=== PATIENT | female | born 1955 | race Caucasian/White ===

== ENCOUNTER 2020-09-20 09:33 | Outpatient (CLI) | payer MEDICARE, SELFPAY ==
--- NOTE | ~2020-09-20 | NM_ITS ---
EXAMINATION: NM lonnie stress w perfusion DATE: 09/20/2020 12:33 INDICATION: Dyspnea on exertion. TECHNIQUE: Rest images were obtained following intravenous administration of 9.9 mCi Tc99m tetrofosmi n (Myoview). The patient was infused intravenously with Lexiscan (regadenoson). Then, 31.1 mCi Tc99m tetrofosmin (Myoview) was administered intravenously, and stress images were obtained. Data was recon structed into short axis and horizontal and vertical long axis SPECT images. Gated SPECT images were also obtained. COMPARISON: None. FINDINGS: There is no definite reversible or fixed perfusion abnormality to suggest ischemia or infar ction. There is no segmental wall motion abnormality. Left ventricular ejection fraction measures > 70%. IMPRESSION: 1. No definite ischemia or infarct. 2. Normal left ventricular ejection fraction measuring >70%. Reviewed, dictated and finalized at location A.
--- NOTE | 2020-09-20 09:44 | EST_ITS ---
Patient Info Name: Marlys Clark Age: 65 years : 1955 Gender: Female Exam Date: 09/20/2020 10:54 AM Exam Location: [facility] Stress Patient Status: Outpatient Admit Date: 09/20/2020 Staff Ordering Physician: Darren Brown MD Attending Provider: Darren Brown MD Exercise Technologist: Sujata Vieira RDCS Exercise Physician: Mark Anthony Scott DO Exam Type: CA stress lonnie w NM Study Info Indications I10 - Essential (primary) hypertension R06.00 - Dyspnea, unspecified A regadenoson stress test was performed. Summary 1. 1. Negative lexiscan stress test for ischemic ST changes by ECG criteria. 2. 2. Baseline hypertension. 3. 3. Nuclear scan to follow and will be reported separately. Please correlate with it. 4. 4. Patient informed of the above results. Protocol: Lexiscan Stress ECG Details Stage: REST Duration (min): 3 min : 34 sec HR (bpm): 55 SBP (mmHg): 180 DBP (mmHg): 95 Stage: REST Duration (min): 13 min : 21 sec HR (bpm): 56 SBP (mmHg): 180 DBP (mmHg): 95 Stage: STAGE 1 Duration (min): 0 min : 59 sec HR (bpm): 66 SBP (mmHg): 171 DBP (mmHg): 58 Stage: RECOVERY Duration (min): 1 min : 0 sec HR (bpm): 68 SBP (mmHg): 171 DBP (mmHg): 58 Stage: RECOVERY Duration (min): 2 min : 0 sec HR (bpm): 66 SBP (mmHg): 158 DBP (mmHg): 60 Stage: RECOVERY Duration (min): 3 min : 0 sec HR (bpm): 67 SBP (mmHg): 148 DBP (mmHg): 62 Stage: RECOVERY Duration (min): 3 min : 11 sec HR (bpm): 72 SBP (mmHg): 148 DBP (mmHg): 62 Rest HR: 56 bpm Peak HR: 72 bpm Rest Sys BP: 180 mmHg Peak Sys BP: 171 mmHg Max Pred HR: 153 bpm % Max Pred HR: 47 % Target HR: 130 bpm Max RPP: 12,312 bpm*mmHg Termination Reason: Completed protocol Cardiac Symptoms: Shortness of breath Total Time: 1 min : 0 sec Rest Patterson BP: 95 mmHg Peak Patterson BP: 58 mmHg Total Dose: 0.4 mg Resting ECG Sinus rhythm, cannot r/o septal infarct, age indeterminate. Stress ECG No ST changes. Arrhythmias None. Report Signatures
== END 2020-09-20 09:34 | disposition home or self-care (01) ==
LOC: ANHCARD 09:35
PROVIDERS: PCP Internal Medicine; Visit Provider Internal Medicine
DX: E55.9 Vitamin D deficiency, unspecified (principal); R06.00 Dyspnea, unspecified; I10 Essential (primary) hypertension; Z86.73 Personal history of transient ischemic attack (TIA), and cerebral infarction without residual deficits
CPT/HCPCS: 78452; 93017; A9502; J2785

== ENCOUNTER 2023-04-15 16:49 | Emergency (ER) | payer MEDICARE, SELFPAY ==
[2023-04-15 16:58] VITALS: BP 112/62; PULSE 65; RESP 18; TEMP 35.8; O2SAT 99
--- NOTE | 2023-04-15 16:58 | ED.URI ---
HPI - URI/Sore Throat General Chief Complaint: Upper Respiratory Infection Stated Complaint: Cough,Congestion,Rt Ear Irritation,Body Aches Time Seen by Provider: 04/15/23 16:52 Source: patient Mode of arrival: ambulatory Limitations: no limitations History of Present Illness HPI Narrative: Marlys is a 68-year-old female patient presenting to the clinic today with complaints of cough, sore throat, congestion, right ear pain, and body aches x2 days. She reports her symptoms started Wednesday night. She denies any known fever but has had some chills. No known exposure to anyone with COVID, flu, or strep. She denies any shortness of breath but does have some chest discomfort with cough. Cough is nonproductive. MD elicited complaint: cough, sore throat, nasal congestion and other (Chills, body aches) Related Data Home Medications Medication Instructions Recorded Confirmed frovatriptan 2.5 mg tablet 2.5 mg PO ONCE 12/04/19 04/15/23 aspirin 325 mg tablet 325 mg PO DAILY 01/04/20 04/15/23 Allergies Allergy/AdvReac Type Severity Reaction Status Date / Time valsartan AdvReac Intermediate shortness Verified 04/15/23 17:17 of breath perindopril AdvReac Mild Cough Verified 04/15/23 17:17 Review of Systems Review of Systems: Pertinent positives per HPI. Patient denies any fever, rash, headache, visual changes, dizziness, shortness of breath, chest pain, palpitations, nausea, vomiting, diarrhea, constipation, abdominal pain, or any urinary issues. [facility] Past Medical History Medical History Chronic low back pain Eustachian tube dysfunction History of CVA (cerebrovascular accident) Family History Family History Father Family history of lung cancer Family history of malignant neoplasm of brain Patient's father is Family history of malignant neoplasm Mother Cerebrovascular accident Family history of coronary artery disease Other Family history of cardiovascular disease Hypertension Social History Social History Smoking status: Never smoker Alcohol intake: never Comments At the time of my signature, I reviewed and agree with the nursing past medical, surgical, social, and family history. There is no relevant family history pertinent to the patient complaint. Exam Narrative: General: Well-developed, well nourished, in no apparent distress Head: Normocephalic, atraumatic Eyes: Pupils equally round and reactive to light bilaterally, EOM intact, sclera and conjunctive clear, no discharge, lids normal Ears: TMs intact and congested, ear canals clear, no drainage, grossly hearing normal. Nose: Nares patent, clear nasal discharge, no inflammation, no sinus tenderness. Mouth: Oral pharynx red without lesions or masses, good dentition, MMM. Postnasal drip Neck: Supple, trachea midline, no enlargement of anterior or posterior cervical nodes, no thyroid masses or goiter palpable. Cardio: Regular rate and rhythm, s1 and s2 normal, no murmur appreciated. Resp: Clear to auscultation bilaterally, no rhonchi, rales, wheezing or rubs Course Course Emergency Course: Portions of this record may have been created with voice recognition software. Level of Care: Express Care Visit Vital Signs Vital signs: Vital signs reviewed MDM - URI/Sore Throat MDM Narrative Medical decision making narrative: At the time of visit patient is resting comfortably on exam table. COVID, flu, and strep test were performed and were negative in the clinic today. Patient is denying any chest pain or shortness of breath today. States she is having a lot of coughing with lying flat. No history congestive heart failure and there is no peripheral edema. I suspect patient has viral syndrome/URI/pharyngitis. Supportive measures were discussed with
== END 2023-04-15 17:30 | disposition home or self-care (01) ==
PROVIDERS: Emergency Provider Nurse Practitioner Family; PCP Family Medicine
DX: J06.9 Acute upper respiratory infection, unspecified (principal); B34.9 Viral infection, unspecified; J02.9 Acute pharyngitis, unspecified; Z20.822 Contact with and (suspected) exposure to COVID-19; Z86.73 Personal history of transient ischemic attack (TIA), and cerebral infarction without residual deficits; Z79.82 Long term (current) use of aspirin
CPT/HCPCS: 87081; 87426; 87804; 87880; 99213; C9803; G0463

== ENCOUNTER 2024-08-15 15:21 | Outpatient (CLI) | payer OTHER, SELFPAY ==
[2024-08-15 15:55] LABS: Hematocrit 33.3 % (37.0-47.0); Hemoglobin 10.7 g/dL (12.0-15.0); Mean Corpuscular HGB Conc 32.1 g/dl (32-36); Mean Corpuscular Hemoglobin 28.6 pg (26-34); Mean Platelet Volume 10.1 fl (7.4-10.4); Platelet Count Result 177 k/mm3 (150-375); Red Blood Count 3.74 M/mm3 (4.2-5.4); Red Cell Distribution Width 13.7 % (11.5-14.5); White Blood Count 5.8 K/mm3 (4.5-10.0)
[2024-08-15 16:06] LABS: Alanine Aminotransferase 21 U/L (6-35); Alkaline Phosphatase 54 U/L (38-126); Anion Gap 10 mmol/L (4-12); Aspartate Amino Transferase 31 U/L (14-36); Bilirubin,Total 0.6 mg/dL (0.2-1.3); Blood Urea Nitrogen 20 mg/dL (7-17); Calcium 9.2 mg/dL (8.4-10.2); Carbon Dioxide 22 mmol/L (22-30); Chloride 111 mmol/L (98-107); Estimated Glomerular Filt Rate 57; Glucose 76 mg/dL (65-110); Potassium 3.7 mmol/L (3.4-5.0); Sodium 143 mmol/L (137-145)
--- OUTSIDE RECORDS SUMMARY | 2024-08-15 16:12 | XMS_ITS | Encounter Summary ---
Author Organization [facility] Address [address] [place] [id number] Care Team Providers Care Pediatric Anesthesiologist Name Role Phone Garth Lion MD Primary Care Provider [phone] Reason for Visit * Reason Onset Date Comments Surgical Clearance 08/09/2024 Encounter Details Date Type Department Care Team (Late st Contact Info) Description 08/09/2024 [facility]phone [facility] [address] [address] Addy Ahumada MD [facility]. [address] [id number] Surgical Clearance Social History Tobacco Use Types Packs/Day Years Used Date Smoking Tobacco: Never Smokeless Tobacco: Never Alcohol Use Standard Drinks/Week Comments Not Currently 0 (1 standard drink = 0.6 oz pur e alcohol) PHQ-2 Answer Date Recorded Patient Health Questionnaire-2 Score 0 12/11/2022 Comments No Sex and Gender Information Value Date Recorded Sex Assigned at Female 08/11/2024 10:23 AM LIBRARY MANAGER Legal Sex Female 5:31 PM CDT Gender Identity Female 09/02/2021 3:19 PM LIBRARY MANAGER Sexual Orientation Not on file documented as of this encounter Progress Notes * SAFIA Nichols - 08/14/2024 9:38 AM CST cleared ARY MANAGER * Xena Ortez RN - 08/11/2024 4:12 PM CST Patient denies chest pain/pressure and SOB. She is able to meet 4METS Xena COTTER ARY MANAGER * SAFIA Nichols - 08/09/2024 2:43 PM CST Please confirm no new chest pain, pressure, SOB and can meet 4 METS of activity. ARY MANAGER * SANDRA Bhatt - 08/09/2024 9:18 AM CST RECEIVED FAX REQUESTING CLEARANCE PRIOR TO UNDERGOING A PROCEDURE W/ 5 HRS OF GENERAL ANESTHESIA MESSAGE TO PATIENT LIAISON FAX LETTER TO [phone] 08/1024 LETTER FAXED ARY MANAGER ARY MANAGER documented in this encounter Plan of Treatment Upcoming Encounters Date Type Department Care Team (Late st Contact Info) Description 09/21/2024 10:30 AM CDT Office Visit [facility] [address] [place] [id number] Marita Bradley FNP [address] [place] [address] documented as of this encounter Visit Diagnoses Not on filedocumented in this encounter Additional Health Concerns Assessment Noted Time PHQ-9 Depression Total Score: 15 022 2:30 PM CDT documented as of this encounter Care Teams Pediatric Anesthesiologist Relationship Specialty [place] [address] [place] [address] PCP - General FAMILY PRACTICE 06/10/22 documented as of this encounter
--- OUTSIDE RECORDS SUMMARY | 2024-08-15 16:12 | XMS_ITS | Encounter Summary ---
Author Organization [facility] Address [address] [place] [address] Care Team Providers Care Hotel Controller Name Role Phone Kevin Elena MD, Darren Gracia Primary Care Provider Encounter Details Date Type Department Care Team (Late st Contact Info) Description 03/15/[address] [phone] Tanner An, RN Social History Tobacco Use Types Packs/Day Years Used Date Smoking Tobacco: Never Smokeless Tobacco: Never Alcohol Use Standard Drinks/Week Comments No 0 (1 standard drink = 0.6 oz pur e alcohol) Comments Unknown Sex and Gender Information Value Date Recorded Sex Assigned at Not on file 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
--- OUTSIDE RECORDS SUMMARY | 2024-08-15 16:12 | XMS_ITS | Referral Summary ---
Author Organization [facility] [address] Address [address] [place] [address] Care Team Providers Care Rn Neurology Name Role Phone Kevin Elena MD, Darren Gracia Primary Care Provider Allergies No known active allergies Medications nebivolol (BYSTOLIC) 5 mg tablet Take 5 mg by mouth daily Active frovatriptan (FROVA) 2.5 mg tabletIndicatio ns:Migraine Take 2.5 mg by mouth once as needed for migraine May repeat in 2 hours if unresolved. Do not exceed 7.5 mg in 24 hours. 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 (10/10/2016): Hemifacial spasm Social History Tobacco Use Types Packs/Day Years Used Date Smoking Tobacco: Never Smokeless Tobacco: Never Alcohol Use Standard Drinks/Week Comments No 0 (1 standard drink = 0.6 oz pur e alcohol) Comments Unknown Sex and Gender Information Value Date Recorded Sex Assigned at Not on file 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 Gender Identity Not on file Sexual Orientation Not on file Last Filed Vital Signs Vital Sign Reading Time Taken Comments Blood Pressure 122/74 03/22/2019 7:49 AM CDT Pulse 51 03/22/2019 7:49 AM CDT Temperature 36.7 C (98 F) 03/22/2019 6:00 AM CDT Respiratory Rate 12 03/22/2019 7:49 AM CDT Oxygen Saturation 99% 03/22/2019 7:49 AM CDT Inhaled Oxygen Concentration - - Weight 65.8 kg (145 lb) 03/21/2019 8:31 AM CDT Height 165.1 cm (5' 5 ) 03/21/2019 8:31 AM CDT Body Mass Index 24.13 03/21/2019 8:31 AM CDT Plan of Treatment Not on file Medical Devices Implanted Type Area Statistical Modeler Device Identifier Shelf Expiration Date Model / Serial / Lot Sesay Vascular [id number] Starclose Se 6fr Clip Vascular Device Closure Nitinol Sterile - [id number] Implanted:Qty: 1 on 03/21/2019 at [facility] S[employer] [id number] / / [employer] [id number] Protege Gps Exprt 7mm 6fr 40mm 135cm Rapid Exchange Self Expand - [id number] Implanted:Qty: 1 on 03/21/2019 at [facility] [employer] 01/21/2020 [id number] / / [id number] Insurance MEDICARE MEDICARE Advance Directives For more information, please contact: [phone] * Full Code (Latest Code Status on File) Date Activated Date Inactivated Comments 03/21/2019 2:05 PM 03/22/2019 2:36 PM * Full Code Date Activated Date Inactivated Comments 03/15/2019 4:17 PM 03/16/2019 2:43 PM * Full Code Date Activated Date Inactivated Comments 03/15/2019 4:17 PM 03/15/2019 4:17 PM * Full Code Date Activated Date Inactivated Comments 03/15/2019 2:48 PM 03/15/2019 4:17 PM Care Teams Rn Neurology Relationship Specialty Start Date End Date Darren Brown Jr., MD [address] [place] [address] PCP - General 10/30/14
--- OUTSIDE RECORDS SUMMARY | 2024-08-15 16:12 | XMS_ITS | Encounter Summary ---
Author Organization [facility] Address [address] [place] [address] Care Team Providers Care Turn Laster Name Role Phone Paul Lion MD Primary Care Provider [phone] Reason for Visit * Reason Comments Follow Up Hypertension Encounter Details Date Type Department Care Team (Late st Contact Info) Description 08/11/2024 10:20 AM CLINICAL APPLICATIONS MANAGER Office Visit [facility] Family & Internal Medicine [address] [address] Paul Lion MD [address] [place] [address] Follow Up; Hypertension Social History Tobacco Use Types Packs/Day Years Used Date Smoking Tobacco: Never Smokeless Tobacco: Never Tobacco Cessation:Counseling Given: No Alcohol Use Standard Drinks/Week Comments Not Currently 0 (1 standard drink = 0.6 oz pur e alcohol) PHQ-2 Answer Date Recorded Patient Health Questionnaire-2 Score 0 12/11/2022 Comments No Sex and Gender Information Value Date Recorded Sex Assigned at Female 08/11/2024 10:23 AM CLINICAL APPLICATIONS MANAGER Legal Sex Female 5:31 PM CDT Gender Identity Female 09/02/2021 3:19 PM CLINICAL APPLICATIONS MANAGER Sexual Orientation Not on file documented as of this encounter Last Filed Vital Signs Vital Sign Reading Time Taken Comments Blood Pressure 152/79 08/11/2024 10:21 AM CLINICAL APPLICATIONS MANAGER Pulse 60 08/11/2024 10:21 AM CLINICAL APPLICATIONS MANAGER Temperature 36.1 C (97 F) 08/11/2024 10:21 AM CLINICAL APPLICATIONS MANAGER Respiratory Rate 16 08/11/2024 10:21 AM CLINICAL APPLICATIONS MANAGER Oxygen Saturation 95% 08/11/2024 10:21 AM CLINICAL APPLICATIONS MANAGER Inhaled Oxygen Concentration - - Weight 64 kg (141 lb) 08/11/2024 10:21 AM CLINICAL APPLICATIONS MANAGER Height 162.6 cm (5' 4 ) 08/11/2024 10:21 AM CLINICAL APPLICATIONS MANAGER Body Mass Index 24.2 08/11/2024 10:21 AM CLINICAL APPLICATIONS MANAGER documented in this encounter Patient Instructions * Patient Instructions* Paul Lion MD - 08/11/2024 10:20 AM CLINICAL APPLICATIONS MANAGER 1) CAD: stable on ASA, beta naresh,statin and brilinta and will follow up with cardiology 2) HTN: stable on amlodipine, losartan,nebivolol, and will follow her renal and electrolytes 3) HDL: stable on rosuvastatin and will follow her lipids and liver enzymes 4) Depression: stable on zoloft, buspar and no need for senior renewal 5) Chronic back pain: stable on methocarbamol and prn tramadol will continue exercise ICAL APPLICATIONS MANAGER ICAL APPLICATIONS MANAGER ICAL APPLICATIONS MANAGER documented in this encounter Progress Notes * Paul Lion MD - 08/11/2024 10:20 AM CST Images from the original note were not included. Office Progress Note Reason for Visit: Follow Up and Hypertension History of Present Illness: Follow Up Pertinent negatives include no chest pain, chills, coughing, fever, myalgias, nausea or rash. Hypertension Pertinent negatives include no blurred vision, chest pain, malaise/fatigue, palpitations or shortness of breath. CAD/PVD: history of angina and carotid stenosis with remote endarterectomy and re stenting ICA denies dizziness, lightheadedness, chest pain palpitations followed by Misha Beverly and Zita Depression/Anxiety: history of feeling down with no helplessness, hopelessness, impulsivity taking zoloft as directed with no side effects Hypertension (Follow-Up): The patient presents for follow-up of primary hypertension. The patient states she has been stable with his blood pressure control since the last visit. she has no significant interval events. Symptoms: The patient is currently asymptomatic. Associated symptoms include no headache, no focal neurologic deficits and no memory loss. Dizziness Home monitoring: The patient checks her blood pressure sporadically.. Medications: the patient is adherent with her medication regimen.@ denies medication side effects.. Hyperlipidemia (Follow-Up): The patient states her hyperlipidemia has been stable since the last visit. Comorbid Illnesses: diabetes mellitus and hypertension. she has no significant interval events. Symptoms: The patient is currently asymptomatic. Associated symptoms include no focal neurologic deficits and no memory loss, myalgia's Medications: the patient is adherent with her medication regimen.@ denies medication side effects.. ROS: Review of Systems Constitutional: Negative for chills, fever and malaise/fatigue. HENT: Negative for hearing loss and tinnitus. Eyes: Negative for blurred vision and double vision. Respiratory: Negative for cough, shortness of breath and wheezing. Cardiovascular: Negative for chest pain, palpitations, claudication and leg swelling. Gastrointestinal: Negative for blood in stool, melena and nausea. Genitourinary: Negative for dysuria and hematuria. Musculoskeletal: Positive for back pain. Negative for falls and myalgias. Skin: Negative for rash. Neurological: Negative for dizziness, sensory change and focal weakness. Endo/Heme/Allergies: Bruises/bleeds easily. Psychiatric/Behavioral: Negative for depression and memory loss. The patient does not have insomnia. Medications: Current Outpatient Medications: amLODIPine (NORVASC) 5 MG tablet, TAKE 1 TABLET (5 MG TOTAL) BY MOUTH DAILY., Disp: 90 tablet, Rfl:1 aspirin EC (ECOTRIN) 81 MG tablet, Take 1 tablet (81 mg total) by mouth daily., Disp: , Rfl: busPIRone (BUSPAR) 7.5 MG tablet, TAKE 1 TABLET BY MOUTH 3 TIMES A DAY BY MOUTH NEEDED FOR ANXIETY, Disp: 270 tablet, Rfl: 1 celecoxib 100 MG capsule, Take 1 capsule (100 mg total) by mouth as needed., Disp: , Rfl: chlorhexidine (PERIDEX) 0.12 % solution, RINSE WITH 1/2 OZ TWICE DAILY FOR 1 WEEK. SWISH FOR 30 SECONDS THEN SPIT, DO NOT SWALLOW., Disp: , Rfl: HYDROcodone-acetaminophen (NORCO) 5-325 MG tablet, Take 1 tablet by mouth every 6 (six) hours as needed for Pain. Indications: Acute Pain < 7 Day Supply, Disp: 28 tablet, Rfl: 0 losartan (COZAAR) 25 MG tablet, TAKE 1 TABLET (25 MG TOTAL) BY MOUTH DAILY., Disp: 90 tablet, Rfl: 1 methocarbamol (ROBAXIN) 750 MG Tab, TAKE 1 TABLET BY MOUTH 2 TIMES DAILY NEEDED (BACK PAIN)., Disp: 60 tablet, Rfl: 1 nebivolol (BYSTOLIC) 5 MG tablet, TAKE 1 TABLET (5 MG TOTAL) BY MOUTH DAILY., Disp: 90 tablet, Rfl:1 phenylephrine-cocoa butter (PREPARATION H) 0.25-88.44 % suppository, Place 1 suppository rectally 4(four) times daily as needed for Hemorrhoids., Disp: 24 suppository, Rfl: 2 RECTIV 0.4 % Ointment, APPLY RECTALLY TWICE DAILY FOR 14 DAYS, Disp: 30 g, Rfl: 0 rosuvastatin (CRESTOR) 10 MG tablet, take 1 tablet by mouth every day, Disp: 90 tablet, Rfl: 1 sertraline (ZOLOFT) 100 MG tablet, TAKE 1 TABLET BY MOUTH IN THE MORNING, Disp: 90 tablet, Rfl: 1 SUMAtriptan (IMITREX) 25 MG tablet, Take 1 tablet by mouth at onset of migraine, may repeat dose in2 hours if migraine persists. Max daily dose 50mg., Disp: 18 tablet, Rfl: 2 ticagrelor (BRILINTA) 60 MG tablet, TAKE 1 TABLET BY MOUTH NIGHTLY., Disp: 60 tablet, Rfl: 3 traMADol (ULTRAM) 50 MG tablet, Take 1 tablet (50 mg total) by mouth every 6 (six) hours as needed., Disp: , Rfl: valACYclovir (VALTREX) 1 g tablet, Take 1 tablet (1,000 mg total) by mouth 3 (three) times daily. For acute outbreak., Disp: 21 tablet, Rfl: 3 Allergies: Review of patient's allergies indicates: No Known Allergies Medical History: Past Medical History: Diagnosis Date Coronary artery disease COVID-19 vaccine administered 2020 Hammer toe 05/12/2018 Influenza vaccine administered 2019 Surgical History: Past Surgical History: Procedure Laterality Date CAROTID ENDARTERECTOMY Left 2019 2006 LEFT CEA, 2019 BILATERAL CAROTID STENTS PLACED CARPAL TUNNEL RELEASE Bilateral 2010 SECTION 1977 COLONOSCOPY N/A 05/01/2022 COLONOSCOPY negative performed by Deshawn Rutledge MD at [facility] OR ARTHROPLASTY TOE Right 2014 SURG IMG LAP SLEEVE GASTRECTOMY N/A 2018 TCAT IV STENT CRV CRTD ART EMBOLIC PROTECJ Bilateral 03/15/2019 Right ICA, placed following angioplasty, Left ICA placed 03/21/2019 Social History: Social History Tobacco Use Smoking status: Never Smokeless tobacco: Never Vaping Use Vaping status: Never Used Substance Use Topics Alcohol use: Not Currently Drug use: Never Family History: Family History Problem Relation Name Age of Onset Asthma Mother Heart Disease Father Cancer Father Lung Cancer Colon Cancer Brother Colon polyps Brother Colon polyps Brother Colon polyps Brother Breast Cancer Neg Hx PE: Physical Exam Vitals and nursing note reviewed. Constitutional: General: She is not in acute distress. HENT: Head: Normocephalic and atraumatic. Nose: Nose normal. No rhinorrhea. Eyes: General: No scleral icterus. Conjunctiva/sclera: Conjunctivae normal. Pupils: Pupils are equal, round, and reactive to light. Neck: Vascular: No carotid bruit. Cardiovascular: Rate and Rhythm: Normal rate and regular rhythm. Pulses: Normal pulses. Pulmonary: Effort: Pulmonary effort is normal. Breath sounds: No wheezing or rales. Abdominal: General: Bowel sounds are normal. There is no distension. Musculoskeletal: General: Tenderness present. No swelling. Normal range of motion. Cervical back: Normal range of motion. Lymphadenopathy: Cervical: No cervical adenopathy. Skin: General: Skin is warm. Coloration: Skin is not jaundiced or pale. Findings: No rash. Neurological: General: No focal deficit present. Mental Status: She is alert and oriented to person, place, and time. Cranial Nerves: No cranial nerve deficit. Psychiatric: Mood and Affect: Mood normal. Behavior: Behavior normal. Filed Vitals: 08/11/24 1021 BP: (!) 152/79 Pulse: 60 Resp: 16 Temp: 97 ??F (36.1 ??C) TempSrc: Temporal SpO2: 95% Weight: 64 kg (141 lb) Height: 1.626 m (5' 4 ) Body mass index is 24.2 kg/m??. Diagnoses/Impression: 1. Coronary artery disease of [place] artery of [place] heart with stable angina pectoris (CMS/HCC) 2. Essential hypertension Chronic 3. Pure hypercholesterolemia Chronic 4. Chronic bilateral low back pain without sciatica Chronic HYDROcodone- acetaminophen (NORCO) 5-325MG tablet 5. Depression, unspecified depression type Recommendations and Plan: Patient Instructions 1) CAD: stable on ASA, beta naresh,statin and brilinta and will follow up with cardiology 2) HTN: stable on amlodipine, losartan,nebivolol, and will follow her renal and electrolytes 3) HDL: stable on rosuvastatin and will follow her lipids and liver enzymes 4) Depression: stable on zoloft, buspar and no need for senior renewal 5) Chronic back pain: stable on methocarbamol and prn tramadol will continue exercise PCP: PAUL LION MD 08/12/2024 ICAL APPLICATIONS MANAGER documented in this encounter Plan of Treatment Upcoming Encounters Date Type Department Care Team (Late st Contact Info) Description 09/21/2024 10:30 AM CDT [facility] [address] [place] [address] Marita Bradley FNP [address] [place] [id number] documented as of this encounter Visit Diagnoses Diagnosis Coronary artery disease of [place] artery of [place] heart with stable angina pectoris (CMS/HCC)- Primary Essential hypertension Unspecified essential hypertension Pure hypercholesterolemia Chronic bilateral low back pain without sciatica Depression, unspecified depression type documented in this encounter Additional Health Concerns Assessment Noted Time PHQ-9 Depression Total Score: 15 022 2:30 PM CDT documented as of this encounter Care Teams Turn Laster Relationship Specialty [place] [address] [place] [address] PCP - General FAMILY PRACTICE 06/10/22 documented as of this encounter
--- OUTSIDE RECORDS SUMMARY | 2024-08-15 16:12 | XMS_ITS | Encounter Summary ---
Author Organization [facility] Address [address] [place] [address] Care Team Providers Care Preparation Plant Supervisor Name Role Phone Vidhi Ellis NP Primary Care Provider [phone] Garth Lion MD Primary Care Provider [phone] Encounter Details Date Type Department Care Team (Late Contact Info) Description 04/02/2022 [place] [employer] Message Enc [facility] Family & Internal Medicine [address] [address] Colin, [facility] Provider Due for routine follow up appt Social History Tobacco Use Types Packs/Day Years Used Date Smoking Tobacco: Never Smokeless Tobacco: Never Alcohol Use Standard Drinks/Week Comments Not Currently 0 (1 standard drink = 0.6 oz pur e alcohol) PHQ-2 Answer Date Recorded PHQ-2 Score - If the patient scores above 3, please move on to questions 3-9 4 10/08/2021 Comments No Sex and Gender Information Value Date Recorded Sex Assigned at Female 08/11/2024 10:23 AM MACHINERY RIGGER Legal Sex Female 5:31 PM CDT Gender Identity Female 09/02/2021 3:19 PM MACHINERY RIGGER Sexual Orientation Not on file COVID-19 Exposure Response Date Recorded In the last 10 days, have yo u been in contact with someone who was confirmed or suspected to have Coronavirus/COVID-19? No / Unsure 03/10/2022 7:30 AM CDT documented as of this encounter Plan of Treatment Upcoming Encounters Date Type Department Care Team (Late Contact Info) Description 09/21/2024 10:30 AM CDT Office Visit [facility] [address] [place] [address] Marita Bradley, SHE[employer] SHOP HELPER [address] [facility] [address] [place] [address] documented as of this encounter Visit Diagnoses Not on filedocumented in this encounter Additional Health Concerns Assessment Noted Time PHQ-9 Depression Total Score: 15 022 2:30 PM CDT documented as of this encounter Care Teams Preparation Plant Supervisor Relationship Specialty [place] [address] [address] [place] [address] [place] [address] PCP - General Nurse Practitioner Family 10/03/2106/09/22 [place] [address] [place] [address] PCP - General FAMILY PRACTICE 06/10/22 documented as of this encounter
--- OUTSIDE RECORDS SUMMARY | 2024-08-15 16:12 | XMS_ITS | Clinical Summary ---
Author Organization [facility] Address [facility] [address] Care Team Providers Care Slate Roofer Name Role Phone Paul Lion MD Primary Care Provider [phone] Allergies No known active allergies Medications aspirin EC (ECOTRIN) 81 MG tablet Take 1 tablet (81 mg total) by mouth daily. Active phenylephrine-cocoa butter (PREPARATION H) 0.25-88.44 % suppositoryIndications :Hemorrhoids, unspecified hemorrhoid type Place 1 suppository rectally 4 (four) times daily as needed for Hemorrhoids. 24 suppository 2 2021 Active celecoxib 100 MG capsule Take 1 capsule (100 mg total) by mouth as needed. 2021 Active RECTIV 0.4 % OintmentIndications:An al pain APPLY RECTALLY TWICE DAILY FOR 14 DAYS 30 g 2022 Active chlorhexidine (PERIDEX) 0.12 % solution RINSE WITH 1/2 OZ TWICE DAILY FOR 1 WEEK. SWISH FOR 30 SECONDS THEN SPIT, DO NOT SWALLOW. 2023 Active valACYclovir (VALTREX) 1 g tabletIndications:HSV (herpes simplex virus) anogenital infection Take 1 tablet (1,000 mg total) by mouth 3 (three) times daily. For acute outbreak. 21 tablet 3 2023 Active rosuvastatin (CRESTOR) 10 MG tabletIndications:[place] tid artery stenosis, symptomatic, bilateral,Pure hypercholesterolemia take 1 tablet by mouth every day 90 tablet 1 2023 Active traMADol (ULTRAM) 50 MG tablet Take 1 tablet (50 mg total) by mouth every 6 (six) hours as needed. 2023 Active amLODIPine (NORVASC) 5 MG tabletIndications:Esse ntial hypertension TAKE 1 TABLET (5 MG TOTAL) BY MOUTH DAILY. 90 tablet 1 2023 Active ticagrelor (BRILINTA) 60 MG tabletIndications:[place] tid artery stenosis, symptomatic, bilateral TAKE 1 TABLET BY MOUTH NIGHTLY. 60 tablet 3 2023 Active SUMAtriptan (IMITREX) 25 MG tabletIndications:Migr sunny with aura and without status migrainosus, not intractable Take 1 tablet by mouth at onset of migraine, may repeat dose in 2 hours if migraine persists. Max daily dose 50mg. 18 tablet 2 2023 Active sertraline (ZOLOFT) 100 MG tabletIndications:Irri tability TAKE 1 TABLET BY MOUTH IN THE MORNING 90 tablet 1 2023 Active nebivolol (BYSTOLIC) 5 MG tabletIndications:Esse ntial hypertension TAKE 1 TABLET (5 MG TOTAL) BY MOUTH DAILY. 90 tablet 1 2023 Active losartan (COZAAR) 25 MG tabletIndications:Esse ntial hypertension TAKE 1 TABLET (25 MG TOTAL) BY MOUTH DAILY. 90 tablet 1 2024 Active methocarbamol (ROBAXIN) 750 MG TabIndications:Chronic bilateral low back pain without sciatica TAKE 1 TABLET BY MOUTH 2 TIMES DAILY NEEDED (BACK PAIN). 60 tablet 1 2024 Active busPIRone (BUSPAR) 7.5 MG tabletIndications:Anxi ety TAKE 1 TABLET BY MOUTH 3 TIMES A DAY BY MOUTH NEEDED FOR ANXIETY 270 tablet 1 2024 Active HYDROcodone-acetaminop hen (NORCO) 5-325 MG tabletIndications:Acut e Pain < 7 Day Supply Take 1 tablet by mouth every 6 (six) hours as needed for Pain. Indications: Acute Pain < 7 Day Supply 28 tablet 2024 Active HYDROcodone-acetaminop hen (NORCO) 5-325 MG tabletIndications:Acut e Pain < 7 Day Supply Take 1 tablet by mouth every 8 (eight) hours as needed for Pain. Indications: Acute Pain < 7 Day Supply 10 tablet 08/11 Discontinued( Reorder) methocarbamol (ROBAXIN) 750 MG TabIndications:Chronic bilateral low back pain without sciatica Take 1 tablet (750 mg total) by mouth 2 (two) times daily as needed (back pain). 60 tablet 1 07/19 Discontinued losartan (COZAAR) 25 MG tabletIndications:Esse ntial hypertension TAKE 1 TABLET (25 MG TOTAL) BY MOUTH DAILY. 90 tablet 1 07/19 Discontinued busPIRone (BUSPAR) 7.5 MG tabletIndications:Anxi ety Take 1 tablet (7.5 mg total) by mouth 3 (three) times daily as needed (anxiety). 90 tablet 2 08/01 Discontinued Active Problems Problem Noted Date Diagnosed Date Hemorrhoids 04/24/2022 Overview (04/24/2022): Added automatically from request for surgery [id number] Pure hypercholesterolemia 04/02/2021 Medication management 11/22/2020 Essential hypertension 11/19/2020 Chronic bilateral low back pain without sciatica 11/19/2020 Migraine with aura and witho ut status migrainosus, not intractable 11/19/2020 Bilateral plantar fasciitis 07/20/2019 Carotid artery stenosis, symptomatic, bilateral 03/08/2019 Overview (11/17/2020): History of left carotid endarterectomy. Bilateral ICA stents, 2019. Coronary artery disease Resolved Problems Problem Noted Date Diagnosed Date Resolved Date Lump in central portion of breast 08/18/2022 08/11/2024 BMI 22.0-22.9, adult 11/22/2020 022 Hammer toe 05/12/2018 11/19/2020 Tremor 07/20/2014 11/19/2020 Overview (11/17/2020): Overview: Tremor Encounters Date Type Department Care Team Description 08/11/2024 10:20 AM MEDICAL AIDE Office Visit [facility] Family & Internal Medicine [address] [address] Paul Lion MD Follow Up; Hypertension 08/11/2024 Travel 08/09/2024 Telephone [facility] [address] [place] [address] Sierra Ahumada MD Surgical Clearance 06/23/2024 Telephone [facility] [address] [place] [address] Marita Bradley, TOUR DRIVER Results 06/22/2024 12:07 PM MEDICAL AIDE - 06/22/2024 11:59 PM MEDICAL AIDE Hospital Encounter [facility] [address] [place] [address] Sierra Ahumada MD Discharge Disposition: Home or Self Care (Routine Discharge) 06/22/2024 12:05 PM MEDICAL AIDE - 06/22/2024 12:06 PM MEDICAL AIDE Hospital Encounter [facility] [address] [place] [address] Sierra Ahumada MD Discharge Disposition: Home or Self Care (Routine Discharge) 06/22/2024 11:15 AM MEDICAL AIDE Office Visit [facility] [address] [place] [id number] Sierra Ahumada MD Follow Up (testing); Palpitations; Bradycardia; Hypertension; Lipids 06/22/2024 Orders Only [facility] [address] [place] [address] Sierra Ahumada MD 06/22/2024 Travel 06/08/2024 Telephone [facility] Family & Internal Medicine [facility] [address] [place] [address] Paul Lion MD Medication Information 06/07/2024 Telephone [facility] Family & Internal Medicine [facility] [address] [place] [address] Paul Lion MD Medication 05/31/2024 Telephone [facility] [address] [place] [address] Marita Bradley FNP Results from Last 3 Months Immunizations Name Administration Dates Next Due Abrysvo Respiratory Syncytia l Virus (RSV) 0.5 mL, PF 03/04/2024 Fluzone High Dose (IIV, triv alent, 0.5mL) 03/05/2024 Fluzone High Dose - >Age 65 (Prefilled Syringe) 05/25/2023,04/10/2022 Influenza Adult (Generic) 05/25/2023,06/2021,05/01/2020,2018,04/12/2018,02/23/2017,03/03/2016,0 03/31/2015 PFIZER COVID-19 (ORIGINAL FORMULATION, PURPLE CAP) mRNA, LNP-S, PF, 30 MCG/0.3 ML DOSE 06/03/2021 Pneumococcal (Pneumovax 23) 02/14/2021, 5 Pneumococcal (Prevnar 13) 05/12/2014 Shingrix 04/17/2021,06/18/2020,04/09/2020 Zoster (Zostavax) 94164 Unt/0.65Ml 04/02/2009 Family History Medical History Relation Comments Colon Cancer Brother 1 Colon polyps Brother 2 Colon polyps Brother 3 Colon polyps Brother 4 Cancer Father Lung Cancer Heart Disease Father Asthma Mother Breast Cancer Neg Hx Relation Status Comments Brother 1 Brother 2 Alive Brother 3 Alive Brother 4 Alive Father Mother Social History Tobacco Use Types Packs/Day Years Used Date Smoking Tobacco: Never Smokeless Tobacco: Never Tobacco Cessation:Counseling Given: No Alcohol Use Standard Drinks/Week Comments Not Currently 0 (1 standard drink = 0.6 oz pur e alcohol) PHQ-2 Answer Date Recorded Patient Health Questionnaire-2 Score 0 12/11/2022 Comments No Sex and Gender Information Value Date Recorded Sex Assigned at Female 08/11/2024 10:23 AM MEDICAL AIDE Legal Sex Female 5:31 PM CDT Gender Identity Female 09/02/2021 3:19 PM MEDICAL AIDE Sexual Orientation Not on file Last Filed Vital Signs Vital Sign Reading Time Taken Comments Blood Pressure 152/79 08/11/2024 10:21 AM MEDICAL AIDE Pulse 60 08/11/2024 10:21 AM MEDICAL AIDE Temperature 36.1 C (97 F) 08/11/2024 10:21 AM MEDICAL AIDE Respiratory Rate 16 08/11/2024 10:21 AM MEDICAL AIDE Oxygen Saturation 95% 08/11/2024 10:21 AM MEDICAL AIDE Inhaled Oxygen Concentration - - Weight 64 kg (141 lb) 08/11/2024 10:21 AM MEDICAL AIDE Height 162.6 cm (5' 4 ) 08/11/2024 10:21 AM MEDICAL AIDE Body Mass Index 24.2 08/11/2024 10:21 AM MEDICAL AIDE Plan of Treatment Upcoming Encounters Date Type Department Care Team (Late st Contact Info) Description 09/21/2024 10:30 AM CDT [facility] [address] [place] [phone] Marita Bradley FNP [address] [place] [address] Health Maintenance Due Date Last Done Comments Hepatitis C 1971 DTaP, Tdap and Td Vaccines (1 - Tdap) 1972 Annual Medicare Wellness Visit 2018 COVID-19 Vaccine ( season) 2024 06/03/2021, 10/04/2020, 09/13/2020 PHQ-2 (Physician [place]) 07/05/2024 12/11/2022 Mammogram Screening 09/30/2024 09/30/2022, 01/13/2021, 11/25/2020, Additional history exists Colorectal Cancer Screening Colonoscopy (10 Years) 05/01/2032 05/01/2022, 11/23/2016, 10/03/2014 Pneumococcal Vaccine: 65+ Years Completed 02/14/2021, 11/17/2014, 05/12/2014 Zoster Vaccines Completed 04/17/2021, 06/04, 04/09/2020, Additional history exists Dexa Scan (General) Completed 07/24/2021 RSV Immunization or 60+ Years Completed 03/04/2024 Influenza Adult Completed 03/05/2024, 05/06, 05/25/2023, Additional history exists Meningococcal B Vaccine Aged Out No l onger eligible based on patient's age to complete this topic Meningococcal Vaccine Aged Out No deborah laya eligible based on patient's age to complete this topic RSV Immunizations Under 20 Months Aged Out No longer eligible based on patient's age to complete this topic Medical Devices Implanted Type Area Pharmaceutical Laboratory Technician Device Identifier Shelf Expiration Date Model / Serial / Lot Intramedullary Arthrodesis Implant Implanted:Qty: 1 on 09/05/2019 by Denise Monroy DPM at [facility] Left: Toe 09/02/2023 REF NO [id number] / / [id number] Procedures Procedure Name Priority Date/Time Associated Diagnosis Comments XR CHEST PA+LAT Routine 06/22/2024 12:32 PM MEDICAL AIDE Orthopnea BASIC METABOLIC PANEL Routine 06/22/2024 12:26 PM MEDICAL AIDE Orthopnea PRO-BRAIN NATRIURETIC PEPTIDE Routine 06/22/2024 12:26 PM MEDICAL AIDE Orthopnea CBC, AUTO, NO DIFF Routine 06/22/2024 12 :26 PM MEDICAL AIDE Orthopnea TSH W/REFLEX Routine 06/22/2024 12:26 PM MEDICAL AIDE Orthopnea XTRNL ECG REC<48 HRS RECORDING SCAN A/R R&I Routine 05/15/2024 12:31 PM MEDICAL AIDE Palpitations MG DIAG W ELOISE BILAT DIGI Routine 09/30/2022 2:12 PM CDT Mass overlapping multiple quadrants of right breast BONE DENSITY/DEXA Routine 07/24/2021 11: 00 AM MEDICAL AIDE Postmenopausal estrogen deficiency Screening for osteoporosis COLONOSCOPY GENERIC (SCAN ORDER) 11/23/2016 from Last 3 Months or Most Recently Relevant to Health Maintenance Results * XR CHEST PA+LAT (06/22/2024 12:32 PM MEDICAL AIDE) Anatomical Region Laterality Modality Chest Radiographic Denisha ging 06/22/2024 6:43 PM MEDICAL AIDE Impressions 06/22/2024 6:45 PM MEDICAL AIDE IMPRESSION: 1) No acute or focal infiltrates or congestion. Stable chest radiograph. Ordered By: SIERRA AHUMADA Interpreted By: Julio Bass MD, 06/22/2024 6:43 PM Narrative 06/22/2024 6:45 PM MEDICAL AIDE [facility] [address] [place] [address] Examination: XR CHEST PA+LAT Exam time: 06/22/2024 12:19 PM Clinical history: Orthopnea Comparison: Prior radiographs March 2021. Technique: 2 views. Findings: The heart size is normal. Trachea is in the midline. In the lung parenchyma no acute infiltrates. There is no congestion. No pneumothorax or effusion. Osseous structures are intact. Chronic mild degenerative changes at the spine and shoulders. Procedure Note Julio Bass MD - 06/22/2024 [facility] [address] [place] [address] Examination: XR CHEST PA+LAT Exam time: 06/22/2024 12:19 PM Clinical history: Orthopnea Comparison: Prior radiographs March 2021. Technique: 2 views. Findings: The heart size is normal. Trachea is in the midline. In the lung parenchyma no acute infiltrates. There is no congestion. Nopneumothorax or effusion. Osseous structures are intact. Chronic milddegenerative changes at the spine and shoulders. IMPRESSION: 1) No acute or focal infiltrates or congestion. Stable chest radiograph. Ordered By: SIERRA AHUMADA Interpreted By: Julio Bass MD, 06/22/2024 6:43 PM us Sierra Ahumada MD GENERAL IMAGING Final Resul t * TSH W/REFLEX (06/22/2024 12:26 PM MEDICAL AIDE) TSH 2.851 0.358 - 3.74 uIU/ML 06/22/2024 1:00 PM MEDICAL AIDE [facility] Comment: HIGH DOSES OF BIOTIN MAY INTERFERE WITH THIS TEST RESULT. CORRELATION TO CLINICAL HISTORY AND PRESENTATION RECOMMENDED. FREE T4 NOT INDICATED 06/22/2024 12:2 6 PM MEDICAL AIDE us Sierra Ahumada MD LABORATORY Final Resul t Performing Organization Address [facility] Co de Phone Number [facility] [address] [place] [address], [place] [phone] * (ABNORMAL) PRO-BRAIN NATRIURETIC PEPTIDE (06/22/2024 12:26 PM MEDICAL AIDE) PRO-B TYPE NATRIURETIC PEPTIDE 568(H) <125 PG/ML 06/22/2024 1:00 PM MEDICAL AIDE [facility] Comment: CUT POINTS ESTABLISHED BY INTERNATIONAL COLL[employer] ON NT PROBNP (ICON) STUDY (2006). AGE INDEPENDENT: <300 PG/ML HAS A 99% NEGATIVE PREDICTIVE VALUE FOR EXCLUDING ACUTE CHF <50 YEARS: >450 PG/ML IS CONSISTENT WITH ACUTE CHF 50-75 YEARS: >900 PG/ML IS CONSISTENT WITH ACUTE CHF >75 YEARS: >1800 PG/ML IS CONSISTENT WITH ACUTE CHF IN PATIENTS WITH RENAL INSUFFICIENCY (GFR <60), >1200 PG/ML YIELDS A DIAGNOSTIC SENSITIVITY AND SPECIFICITY OF 89% AND 72% FOR ACUTE CHF. 06/22/2024 12:2 6 PM MEDICAL AIDE us Sierra Ahumada MD LABORATORY Final Resul t Performing Organization Address [facility]/ZIP Co de Phone Number [facility] [address] [place] [address], [place] [phone] * (ABNORMAL) BASIC METABOLIC PANEL (06/22/2024 12:26 PM MEDICAL AIDE) GLUCOSE 79 70 - 99 MG/DL 06/22/2024 1:00 PM MEDICAL AIDE [facility] BUN 22(H) 7 - 18 MG/DL 06/22/2024 1:00 PM [facility] CREATININE S/P/B 1.01 0.55 - 1.02 MG/DL 06/22/2024 1:00 PM [facility] SODIUM S/P/B 143 136 - 145 MMOL/L 06/22/2024 1:00 PM [facility] POTASSIUM S/P/B 3.8 3.5 - 5.1 MMOL/L 06/22/2024 1:00 PM [facility] CHLORIDE S/P/B 108 100 - 108 MMOL/L 06/22/2024 1:00 PM [facility] CO2 28.8 21 - 32 MMOL/L 06/22/2024 1:00 PM [facility] CALCIUM S/P/B 9.0 8.5 - 10.1 MG/DL 06/22/2024 1:00 PM [facility] ANION GAP 6.2 5 - 15 MMOL/L 06/22/2024 1:00 PM [facility] BUN CREATININE RATIO 21.8 6 - 26 06/22/2024 1:00 PM [facility] GFR ESTIMATE 60(L) >90 ML/MIN/1.7 3 M2 06/22/2024 1:00 PM [facility] Comment: NOTE: eGFR is not calculated for patients <18 years of age. This is an estimated GFR calculation using the new CKD EPI creatinine equation without race and so does not require a correction factor for race. This estimated GFR should not be used for calculating drug doses. 06/22/2024 12:2 6 PM MEDICAL AIDE us Sierra Ahumada MD LABORATORY Final Resul t [facility] [address] [place] [address], [place] [phone] * (ABNORMAL) CBC, AUTO, NO DIFF (06/22/2024 12:26 PM MEDICAL AIDE) WBC 4.27(L) 4.4 - 11.0 x10'3/uL 06/22/2024 12:35 PM MEDICAL AIDE [facility] RBC 3.63(L) 4.50 - 5.10 x10'6/uL 06/22/2024 12:35 PM [facility] HGB 10.4(L) 12.3 - 15.3 G/DL 06/22/2024 12:35 PM [facility] HCT 32.1(L) 35.9 - 44.6 % 06/22/2024 12:35 PM [facility] MCV 88.4 80.0 - 96.0 FL 06/22/2024 12:35 PM [facility] MCH 28.7 25.3 - 30.9 PG 06/22/2024 12:35 PM [facility] MCHC 32.4 31.0 - 34.1 G/DL 06/22/2024 12:35 PM [facility] RDW 13.2 12.4 - 15.1 % 06/22/2024 12:35 PM [facility] PLT 160 151 - 353 x10'3/uL 06/22/2024 12:35 PM [facility] MPV 10.2 9.6 - 12.0 FL 06/22/2024 12:35 PM [facility] 06/22/2024 12:2 6 PM MEDICAL AIDE us Sierra Ahumada MD LABORATORY Final Resul t [facility] [address] [place] [address], * CLINIC - HOLTER MONITOR - ECG UP TO 48 HRS,COMPLETE (05/15/2024 12:31 PM MEDICAL AIDE) Micah GALLARDO - 05/15/2024 12:31 PM MEDICAL AIDE EVENT MONITOR REPORT Patient Name: Marlys Clark : 1955 Operating Cost Clerk Date: 05/10/24 Performed At: [facility], [place] Interpreting Rural Service Engineer: Dr. Ahumada PCP: PAUL LION MD INDICATION: palpitations DURATION OF MONITORIN days NUMBER OF TRANSMISSIONS: 13, none by patient Usable data: 81% Heart rate range: 46-88, average 61 Pauses: none Percentage Atrial fibrillation: none INTERPRETATION: Overall in sinus or sinus gareth. < 1% ventricular ectopy. < 1% atrial ectopy. Brief episodes (< 7 seconds) of asymptomatic SVT. CONCLUSION: Overall benign event monitor. No symptoms noted by patient. No significant arrhythmias, pauses or ectopy seen. Could consider longer monitor if continued symptoms. us Marita Bradley TOUR DRIVER PROCEDURES Final Result DEANGELO GALLARDO * MG DIAG W ELOISE CHE (09/30/2022 2:12 PM CDT) Anatomical Region Laterality Modality Breast Bilateral Mammography, Rad iographic Imaging 09/30/2022 2:26 PM CDT Narrative 09/30/2022 2:28 PM CDT IMAGING STUDIES: Bilateral diagnostic mammograms with computer-aided detection with 2-D and 3-D imaging. Tomosynthesis. DATE: 09/30/2022 1:13 PM HISTORY: Palpable abnormality in the medial aspect of the right breast.. COMPARISON: 02/24/2017. November 25, 2020 TISSUE TYPE: There are scattered areas of fibroglandular density. FINDINGS: 1. Marker was placed at approximately the 3 to 4:00 position of the right breast, overlying the region of palpable abnormality. There is normal underlying parenchyma on this mammogram and same-day ultrasound. 2. No malignant microcalfcifications, new dominant masses, or architectural distortion. Stable benign asymmetric tissue in the upper outer quadrant of the left breast. Stable benign nodularity. 3. No skin thickening or nipple retraction. Axillary regions are within normal limits. IMPRESSION: 1. No mammographic evidence of malignancy. If palpable abnormality persists, follow-up with surgical consultation. 2. Assessment: ACR BI-RADS 2 - BENIGN FINDING(S) 3 .Routine Screening Bilateral MQSA BI-RADS Categories: Category 0 - needs additional imaging evaluation. Category 1 - negative. Category 2 - benign findings. Category 3 - probably benign findings, but short interval follow-up is recommended. Category 4 - suspicious abnormality and biopsy should be considered though the lesion may well be benign. Category 5 - highly suggestive of malignancy and appropriate action should be taken. Category 6 - known biopsy-proven malignancy A) A negative report should not delay a biopsy if a dominant or clinically suspicious mass is present. B) Adenosis and dense breasts may obscure an underlying neoplasm. C) Study interpreted with computer aided detection. Ordered By: PAUL LION Interpreted By: Alejandrina Cruz, 09/30/2022 2:26 PM us Paul Lion MD MAMMO Final Resul t * BONE DENSITY/DEXA (07/24/2021 11:00 AM MEDICAL AIDE) Anatomical Region Laterality Modality Bone Bone Density 07/24/2021 11:0 5 AM MEDICAL AIDE Narrative 07/24/2021 11:07 AM MEDICAL AIDE IMAGING STUDIES: BONE DENSITY/DEXA DATE: 07/24/2021 11:00 AM CLINICAL HISTORY: 66-year-old female with menopause at age 43. No stated calcium replacement therapy.. FINDINGS: LUMBAR SPINE L2-L4: BMD: 0.980 g/sq cm T-SCORE: -0.9 WHO CLASSIFICATION: Normal young adult range FRACTURE RISK: Very low LEFT FEMORAL NECK: BMD: 0.782 T-SCORE: -0.6 WHO CLASSIFICATION: Normal young adult range FRACTURE RISK: Very low Recommendation. Possible instigation of calcium replacement therapy with repeat imaging in 2 years Ordered By: ZHANG VIRAMONTES Interpreted By: Alejandrina Cruz, 07/24/2021 11:05 AM Procedure Note Sukhwinder Cruz MD - 07/24/2021 IMAGING STUDIES: BONE DENSITY/DEXA DATE: 07/24/2021 11:00 AM CLINICAL HISTORY: 66-year-old female with menopause at age 43.No stated calcium replacement therapy.. FINDINGS: LUMBAR SPINE L2-L4: BMD: 0.980 g/sq cm T-SCORE: -0.9 WHO CLASSIFICATION: Normal young adult range FRACTURE RISK: Very low LEFT FEMORAL NECK: BMD: 0.782 T-SCORE: -0.6 WHO CLASSIFICATION: Normal young adult range FRACTURE RISK: Very low Recommendation. Possible instigation of calcium replacement therapy withrepeat imaging in 2 years Ordered By: ZHANG VIRAMONTES Interpreted By: Alejandrina Cruz, 07/24/2021 11:05 AM us Zhang Viramontes MD DEXA Final Res ult * COLONOSCOPY GENERIC (11/23/2016) 11/23/2016 Narrative 11/23/2016 Ordered by an unspecified provider. us Documents Scanned SCANNING Final Result from Last 3 Months or Most Recently Relevant to Health Maintenance Insurance [employer] Care Teams Slate Roofer Relationship Specialty [place] [id number] [place] [address] PCP - General FAMILY PRACTICE 06/10/22
--- OUTSIDE RECORDS SUMMARY | 2024-08-15 16:12 | XMS_ITS | Clinical Summary ---
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 Overview (10/10/2016): Hemifacial spasm Surgical History Surgery Date Site/Laterality Comments SECTION CARPAL TUNNEL RELEASE Carpal tunnel release CAROTID ENDARTERECTOMY 07/05/2006 - 07/04/2007 Left Medical History Medical History Date Comments Migraines Hypertension Family History Medical History Relation Name Comments Colon cancer Brother Cancer, colon; Cancer Father Cancer, unknown ; Cause of : Cancer, unknown Hypertension Other 1 Family history of Hypertension; Stroke Other 2 Family history of Stroke; Relation Name Status Comments Brother Father Other 1 Other 2 Social History Tobacco Use Types Packs/Day Years Used Date Smoking Tobacco: Never Smokeless Tobacco: Never Alcohol Use Standard Drinks/Week Comments No 0 (1 standard drink = 0.6 oz pur e alcohol) Comments Unknown Sex and Gender Information Value Date Recorded Sex Assigned at Not on file 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 Gender Identity Not on file Sexual Orientation Not on file Obstetrics History Last Filed Vital Signs Vital Sign Reading [...] 03/21/2019 8:31 AM CDT Plan of Treatment Health Maintenance Due Date Last Done Comments Breast Cancer Screening-Mammogram 1955 Colon Cancer Screening-Colonoscopy 1955 Depression Screening 1955 Fall Risk Assessment 1955 Hepatitis C Screening 1955 Osteoporosis Screening-Bone Density Scan 1955 DTaP/Tdap/Td Vaccine (1 - Tdap) 1964 Hepatitis B Screening 1971 Well Visit 65+ 2018 Covid-19 Vaccine (2 - 2023-2 5 season) 2024 06/03/2021 Influenza Vaccine (#1) 2024 , 05/01/2020, 03/31/2019, Additional history exists Pneumococcal vaccine 65+ Completed 021, 11/17/2014, 05/12/2014 Zoster Vaccine Completed 04/17/2021, 06/04, 04/09/2020, Additional history exists Medical Devices Implanted Type Area Nuclear Plant Equipment Operator Device Identifier Shelf Expiration Date Model / Serial / Lot Sesay Vascular 28070-51 Starclose Se 6fr Clip Vascular Device Closure Nitinol Sterile - [id number] Implanted:Qty: 1 on 03/21/2019 at [facility] Sesay Vascular 1467 9-01 / / [employer] [id number] Protege Gps Exprt 7mm 6fr 40mm 135cm Rapid Exchange Self Expand - [id number] Implanted:Qty: 1 on 03/21/2019 at [facility] [employer] 01/21/2020 SECX-7 -[id number] / / [id number] Insurance MEDICARE Member Subscriber Plan / Payer ( fective 2018-Present) Name:Marlys Clark Member ID:[id number] Relation to Subscriber:Self Name:Marlys Clark Subscriber ID:[id number] Payer ID:[id number] Group ID:Not on file Type:MEDICARE TRADITIONAL Address: [place] [phone] MEDICARE Advance Directives For more information, please contact: [phone] * Full Code (Latest Code Status on File) Date Activated Date Inactivated Comments 03/21/2019 2:05 PM 03/22/2019 2:36 PM * Full Code Date Activated Date Inactivated Comments 03/15/2019 4:17 PM 03/16/2019 2:43 PM * Full Code Date Activated Date Inactivated Comments 03/15/2019 4:17 PM 03/15/2019 4:17 PM * Full Code Date Activated Date Inactivated Comments 03/15/2019 2:48 PM 03/15/2019 4:17 PM Care Teams Quartz Mounter Relationship Specialty Start Date End Date Darren Brown Jr., MD [address] [place] [address] PCP - General 10/30/14
--- OUTSIDE RECORDS SUMMARY | 2024-08-15 16:12 | XMS_ITS | Encounter Summary ---
Author Organization [facility] Address [address] [place] [address] Care Team Providers Care Phd Intern Name Role Phone Garth Lion MD Primary Care Provider [phone]- [phone] Encounter Details Date Type Department Care Team (Late Contact Info) Description 09/07/2022 [employer] Message Enc [facility] [address] Mychart, [facility] Provider [facility] Social History Tobacco Use Types Packs/Day Years Used Date Smoking Tobacco: Never Smokeless Tobacco: Never Alcohol Use Standard Drinks/Week Comments Not Currently 0 (1 standard drink = 0.6 oz pur e alcohol) PHQ-2 Answer Date Recorded PHQ-2 Score - If the patient scores above 3, please move on to questions 3-9 0 04/24/2022 Comments No Sex and Gender Information Value Date Recorded Sex Assigned at Female 08/11/2024 10:23 AM LINEMAN APPRENTICE Legal Sex Female 5:31 PM CDT Gender Identity Female 09/02/2021 3:19 PM LINEMAN APPRENTICE Sexual Orientation Not on file COVID-19 Exposure Response Date Recorded In the last 10 days, have yo u been in contact with someone who was confirmed or suspected to have Coronavirus/COVID-19? No / Unsure 09/03/2022 12:51 PM LINEMAN APPRENTICE documented as of this encounter Plan of Treatment Upcoming Encounters Date Type Department Care Team (Late Contact Info) Description 09/21/2024 10:30 AM CDT Office Visit [facility] [address] [place] [address] Marita Bradley, SAFIA [address] [place] [address] documented as of this encounter Visit Diagnoses Not on filedocumented in this encounter Additional Health Concerns Assessment Noted Time PHQ-9 Depression Total Score: 15 022 2:30 PM CDT documented as of this encounter Care Teams Phd Intern Relationship Specialty [place] [address] [place] [address] PCP - General FAMILY PRACTICE 06/10/22 documented as of this encounter
--- OUTSIDE RECORDS SUMMARY | 2024-08-15 16:12 | XMS_ITS | Encounter Summary ---
Author Organization [facility] Address [address] [place] [address] Care Team Providers Care Scheduling Manager Name Role Phone Garth Lion MD Primary Care Provider [phone]- [phone] Encounter Details Date Type Department Care Team (Late Contact Info) Description 10/19/2023 [employer] Message Enc [facility] Medical Group Family & Internal Medicine - [place] [address] [place] [address] [facility] Provider Due for lab appt Social History Tobacco Use Types Packs/Day Years Used Date Smoking Tobacco: Never Smokeless Tobacco: Never Alcohol Use Standard Drinks/Week Comments Not Currently 0 (1 standard drink = 0.6 oz pur e alcohol) PHQ-2 Answer Date Recorded Patient Health Questionnaire-2 Score 0 12/11/2022 Comments No Sex and Gender Information Value Date Recorded Sex Assigned at Female 08/11/2024 10:23 AM GROUP FITNESS DEPARTMENT HEAD Legal Sex Female 5:31 PM CDT Gender Identity Female 09/02/2021 3:19 PM GROUP FITNESS DEPARTMENT HEAD Sexual Orientation Not on file documented as of this encounter Plan of Treatment Upcoming Encounters Date Type Department Care Team (Late Contact Info) Description 09/21/2024 10:30 AM CDT Office Visit [place] [facility] [address] [place] [address] Marita Bradley, SAFIA [address] [place] [address] documented as of this encounter Visit Diagnoses Not on filedocumented in this encounter Additional Health Concerns Assessment Noted Time PHQ-9 Depression Total Score: 15 022 2:30 PM CDT documented as of this encounter Care Teams Scheduling Manager Relationship Specialty [place] [address] [place] [address] PCP - General FAMILY PRACTICE 06/10/22 documented as of this encounter
[2024-08-15 16:13] LABS: Prealbumin 22.5 mg/dL (17.6-36.0)
--- OUTSIDE RECORDS SUMMARY | 2024-08-15 16:13 | XMS_ITS | Encounter Summary ---
Author Organization [facility] Address [address] [place], [place] [id number] Care Team Providers Care Chassis Inspector Name Role Phone Garth Lion MD Primary Care Provider [phone]- [phone] Encounter Details Date Type Department Care Team ([facility] Contact Info) Description 06/22/2022 Pee[employer] Message Enc [facility] Medical Group Family & Internal Medicine [facility] [address] [place] [address] [place] [address] [place] [address] Headaches Social History Tobacco Use Types Packs/Day Years [...] Sex Assigned at Female 08/11/2024 10:23 AM APPLICATION SUPPORT INTERN Legal Sex Female 5:31 PM CDT Gender Identity Female 09/02/2021 3:19 PM APPLICATION SUPPORT INTERN Sexual Orientation Not on file COVID-19 Exposure Response Date Recorded In the last 10 days, have yo u been in contact with someone who was confirmed or suspected to have Coronavirus/COVID-19? No / Unsure 06/12/2022 11:29 AM APPLICATION SUPPORT INTERN documented as of this encounter Plan of Treatment Upcoming Encounters Date Type Department Care Team (Late Contact Info) Description 09/21/2024 10:30 AM CDT Office Visit [place] [facility] [address] [place] [address] Marita Bradley, SAFIA 3 [facility] [address] [place] [address] documented as of this encounter Visit Diagnoses Not on filedocumented in this encounter Additional Health Concerns Assessment Noted Time PHQ-9 Depression Total Score: 15 022 2:30 PM CDT documented as of this encounter Care Teams Chassis Inspector Relationship Specialty [place] [address] [place] [address] PCP - General FAMILY PRACTICE 06/10/22 documented as of this encounter
--- OUTSIDE RECORDS SUMMARY | 2024-08-15 16:13 | XMS_ITS | Encounter Summary ---
Author Organization [facility] Address [address] [place] [address] Care Team Providers Care School Bus Driver Name Role Phone Vidhi Ellis NP Primary Care Provider +1- [phone] Garth Lion MD Primary Care Provider [phone] Encounter Details Date Type Department Care Team (Late st Contact Info) Description 04/29/2022 Prep for Procedure [facility] [address] [place] [address] Bi Rutledge MD [address] [place] [address] Social History Tobacco Use Types Packs/Day Years [...] Sex Assigned at Female 08/11/2024 10:23 AM COLOR LABORATORY TECHNICIAN Legal Sex Female 5:31 PM CDT Gender Identity Female 09/02/2021 3:19 PM COLOR LABORATORY TECHNICIAN Sexual Orientation Not on file COVID-19 Exposure Response Date Recorded In the last 10 days, have yo u been in contact with someone who was confirmed or suspected to have Coronavirus/COVID-19? No / Unsure 05/01/2022 10:56 AM CDT documented as of this encounter Plan of Treatment Upcoming Encounters Date Type Department Care Team (Late st Contact Info) Description 09/21/2024 10:30 AM CDT Office Visit [place] [facility] [address] [place] [address] Marita Bradley, CALENDER ROLL PRESS OPERATOR 3 [facility] [place] [address] [place] [address] documented as of this encounter Results * ECG 12-Lead (04/29/2022 2:30 PM CDT) 04/29/2022 2:30 PM CDT Narrative [facility] RAD - 04/29/2022 6:37 PM CDT [facility] Test Date: 2022-04-29 Pat Name: YOLIS CLARK Department: 85 Room: Gender: Female Parole Or Probation Officer: : 1955 Requested By: BI RUTLEDGE Order Number: [id number] Reading MD: Anthony Daniel Measurements Intervals [place] Rate: 60 P: PA: 0 QRS: 7 QRSD: 96 T: 60 QT: 455 QTc: 457 Interpretive Statements ATRIAL FIBRILLATION ABNORMAL RHYTHM ECG Compared to ECG 08/31/2019 09:23:26 No significant changes Procedure Note Anthony Daniel MD - 04/29/2022 [facility] Test Date: 2022-04-29 Pat Name: YOLIS CLARK Department: 85 Room: Gender: Female Parole Or Probation Officer: : 1955 Requested By: BI RUTLEDGE Order Number: [id number] Reading MD: Anthony Daniel Measurements Intervals [place] Rate: 60 P: PA: 0 QRS: 7 QRSD: 96 T: 60 QT: 455 QTc: 457 Interpretive Statements ATRIAL FIBRILLATION ABNORMAL RHYTHM ECG Compared to ECG 08/31/2019 09:23:26 No significant changes Bi Rtuledge MD ECG ORDERABLES Final Result [facility] RAD documented in this encounter Visit Diagnoses Diagnosis Pre-op testing- Primary Preoperative examination, unspecified Pre-op testing Preoperative examination, unspecified documented in this encounter Additional Health Concerns Assessment Noted Time PHQ-9 Depression Total Score: 15 022 2:30 PM CDT documented as of this encounter Care Teams School Bus Driver Relationship Specialty [place] [address] [address] [place] [address]. [place] [address] PCP - General Nurse Practitioner Family 10/03/2106/09/22 [place] [address] [place] [address] PCP - General FAMILY PRACTICE 06/10/22 documented as of this encounter
[2024-08-15 16:18] LABS: Iron 60 ug/dL (37-170)
[2024-08-18 19:49] LABS: Vitamin B1 11 nmol/L (8-30)
== END 2024-08-15 15:22 | disposition home or self-care (01) ==
LOC: ANHLAB 15:35
PROVIDERS: PCP Family Medicine; Visit Provider Surgery Plastic and Reconstructive Surgery
DX: R63.4 Abnormal weight loss (principal)
CPT/HCPCS: 36415; 80053; 83540; 84134; 84425; 85027

== ENCOUNTER 2024-09-21 13:29 | Outpatient (CLI) | payer OTHER, SELFPAY ==
--- NOTE | 2024-09-21 13:44 | ECG_ITS ---
Test Date: 2024-09-21 14:01:25 Measurements Intervals [place] Rate: 58 P: 43 MO: 207 QRS: 32 QRSD: 110 T: 50 QT: 445 QTc: 440 Interpretive Statements SINUS BRADYCARDIA WARNING: DATA QUALITY MAY AFFECT INTERPRETATION No previous ECG available for comparison Electronically Signed On 09-22-2024 18:19:26 CDT by Xiomara Shafer M.D.
--- OUTSIDE RECORDS SUMMARY | 2024-09-21 13:55 | XMS_ITS | Encounter Summary ---
Author Organization [facility] Address [address] [place] [address] Care Team Providers Care Curbstone Setter Name Role Phone Kevin Elena MD, Darren Gracia Primary Care Provider Encounter Details Date Type Department Care Team (Late st Contact Info) Description 03/15/[address] [address] Tanner An, RN Social History Tobacco Use Types Packs/Day Years Used Date Smoking Tobacco: Never Smokeless Tobacco: Never Alcohol Use Standard Drinks/Week Comments No 0 (1 standard drink = 0.6 oz pur e alcohol) Comments Unknown Sex and Gender Information Value Date Recorded Sex Assigned at Not on file Legal Sex Female 3:31 AM CIRCUIT RIDER Gender Identity Not on file Sexual Orientation Not on file documented as of this encounter Plan of Treatment Not on file documented as of this encounter Visit Diagnoses Not on filedocumented in this encounter Care Teams Curbstone Setter Relationship Specialty Start [place] [address] [place] [address] PCP - General 10/30/14 documented as of this encounter
--- OUTSIDE RECORDS SUMMARY | 2024-09-21 13:55 | XMS_ITS | Encounter Summary ---
Author Organization [facility] Address [address] [place] [address] Care Team Providers Care Camp Housekeeper Name Role Phone Garth Lion MD Primary Care Provider +1- [phone] Encounter Details Date Type Department Care Team (Late st Contact Info) Description 09/21/2024 11:00 AM CDT Hospital Encounter [facility] [address] [place] [id number] Marita Bradley FNP [address] [address] Arrived Social History Tobacco Use Types Packs/Day Years Used Date Smoking Tobacco: Never Smokeless Tobacco: Never Alcohol Use Standard Drinks/Week Comments Not Currently 0 (1 standard drink = 0.6 oz pur e alcohol) PHQ-2 Answer Date Recorded Patient Health Questionnaire-2 Score 0 12/11/2022 Comments No Sex and Gender Information Value Date Recorded Sex Assigned at Female 08/11/2024 10:23 AM AUTOMOBILE REPOSSESSOR Legal Sex Female 5:31 PM CDT Gender Identity Female 09/02/2021 3:19 PM AUTOMOBILE REPOSSESSOR Sexual Orientation Not on file documented as of this encounter Plan of Treatment Not on file documented as of this encounter Procedures Procedure Name Priority Date/Time Associated Diagnosis Comments VITAMIN B12 / FOLATE Routine 09/21/2024 11:07 AM CDT Anemia, unspecified IRON SAT PANEL (IRON,IBC,%SAT) Routine 09/21/2024 11:07 AM CDT Anemia, unspecified CBC, AUTO, NO DIFF Routine 09/21/2024 11 :07 AM CDT Anemia, unspecified FERRITIN Routine 09/21/2024 11:07 AM CDT Anemia, unspecified documented in this encounter Results * (ABNORMAL) CBC, AUTO, NO DIFF (09/21/2024 11:07 AM CDT) WBC 5.45 4.4 - 11.0 x10'3/uL 09/21/2024 11:12 AM CDT [facility] RBC 3.80(L) 4.50 - 5.10 x10'6/uL 09/21/2024 11:12 AM CDT [facility] HGB 11.0(L) 12.3 - 15.3 G/DL 09/21/2024 11:12 AM CDT [facility] HCT 34.1(L) 35.9 - 44.6 % 09/21/2024 11:12 AM CDT [facility] MCV 89.7 80.0 - 96.0 FL 09/21/2024 11:12 AM CDT [facility] MCH 28.9 25.3 - 30.9 PG 09/21/2024 11:12 AM CDT [facility] MCHC 32.3 31.0 - 34.1 G/DL 09/21/2024 11:12 AM CDT [facility] RDW 13.5 12.4 - 15.1 % 09/21/2024 11:12 AM CDT [facility] PLT 176 151 - 353 x10'3/uL 09/21/2024 11:12 AM CDT [facility] MPV 10.1 9.6 - 12.0 FL 09/21/2024 11:12 AM CDT [facility] 09/21/2024 11:0 7 AM CDT Marita Bradley MAGNETIC TAPE TYPEWRITER OPERATOR LABORATORY Final Result Performing Organization Address City/[facility]/ZIP Co de Phone Number [facility] [address] [place] [address], [place] [phone] * IRON SAT PANEL (IRON,IBC,%SAT) (09/21/2024 11:07 AM CDT) IRON 71 50 - 170 MCG/DL 09/21/2024 11:32 AM CDT [facility] IRON BINDING CAPACITY 363 250 - 450 MCG/DL 09/21/2024 11:32 AM CDT [facility] IRON SATURATION 20 20 - 55 % 11:32 AM CDT [facility] 09/21/2024 11:0 7 AM CDT Marita Bradley MAGNETIC TAPE TYPEWRITER OPERATOR LABORATORY Final Result Performing Organization Address [facility] Co de Phone Number [facility] [address] [place] [address], [place] [phone] * FERRITIN (09/21/2024 11:07 AM CDT) FERRITIN 32.0 8.0 - 388.0 NG/ML 09/21/2024 11:42 AM CDT [facility] 09/21/2024 11:0 7 AM CDT Marita Bradley MAGNETIC TAPE TYPEWRITER OPERATOR LABORATORY Final Result Performing Organization Address City/[facility]/ZIP Co de Phone Number [facility] [address] [place] [address], [place] [phone] * (ABNORMAL) VITAMIN B12 / FOLATE (09/21/2024 11:07 AM CDT) VITAMIN B12 S/P/B 908 193 - 986 PG/ML 09/21/2024 11:56 AM CDT [facility] FOLATE 6.9(L) 8.6 - 58.9 NG/ML 09/21/2024 11:56 AM CDT [facility] 09/21/2024 11:0 7 AM CDT us Marita Bradley MAGNETIC TAPE TYPEWRITER OPERATOR LABORATORY Final Result [facility] [address] [place] [address], documented in this encounter Visit Diagnoses Diagnosis Anemia, unspecified documented in this encounter Additional Health Concerns Assessment Noted Time PHQ-9 Depression Total Score: 15 022 2:30 PM CDT documented as of this encounter Care Teams Camp Housekeeper Relationship Specialty [place] [address] [place] [address] PCP - General FAMILY PRACTICE 06/10/22 documented as of this encounter
--- OUTSIDE RECORDS SUMMARY | 2024-09-21 13:55 | XMS_ITS | Encounter Summary ---
Author Organization [facility] Address [address] [place] [address] Care Team Providers Care Insurance Salesman Name Role Phone Garth Lion MD Primary Care Provider +1- [phone] Encounter Details Date Type Department Care Team (Late st Contact Info) Description 09/18/2024 Telephone [facility] Medical Group Family & Internal Medicine [facility] [address] [place] [address] [place] [address] [place], [place] [id number] Social History Tobacco Use Types Packs/Day Years Used Date Smoking Tobacco: Never Smokeless Tobacco: Never Alcohol Use Standard Drinks/Week Comments Not Currently 0 (1 standard drink = 0.6 oz pur e alcohol) PHQ-2 Answer Date Recorded Patient Health Questionnaire-2 Score 0 12/11/2022 Comments No Sex and Gender Information Value Date Recorded Sex Assigned at Female 08/11/2024 10:23 AM NUCLEAR CARDIOLOGY TECHNOLOGIST Legal Sex Female 5:31 PM CDT Gender Identity Female 09/02/2021 3:19 PM NUCLEAR CARDIOLOGY TECHNOLOGIST Sexual Orientation Not on file documented as of this encounter Plan of Treatment Not on file documented as of this encounter Visit Diagnoses Not on filedocumented in this encounter Additional Health Concerns Assessment Noted Time PHQ-9 Depression Total Score: 15 022 2:30 PM CDT documented as of this encounter Care Teams Insurance Salesman Relationship Specialty [place] [address] [facility] [place] [address] PCP - General FAMILY PRACTICE 06/10/22 documented as of this encounter
--- OUTSIDE RECORDS SUMMARY | 2024-09-21 13:55 | XMS_ITS | Encounter Summary ---
Author Organization [facility] Address [address] [place] [address] Care Team Providers Care Pick Up Operator Name Role Phone Garth Lion MD Primary Care Provider [phone] [phone] Encounter Details Date Type Department Care Team (Late st Contact Info) Description 10/19/2023 PrintLess Plans Message Enc [facility] Medical Group Family & Internal Medicine [facility] [address] [place] [address] Colin, [facility] Provider Due for lab appt Social History Tobacco Use Types Packs/Day Years Used Date Smoking Tobacco: Never Smokeless Tobacco: Never Alcohol Use Standard Drinks/Week Comments Not Currently 0 (1 standard drink = 0.6 oz pur e alcohol) PHQ-2 Answer Date Recorded Patient Health Questionnaire-2 Score 0 12/11/2022 Comments No Sex and Gender Information Value Date Recorded Sex Assigned at Female 08/11/2024 10:23 AM HOME ENERGY AUDITOR Legal Sex Female 5:31 PM CDT Gender Identity Female 09/02/2021 3:19 PM HOME ENERGY AUDITOR Sexual Orientation Not on file documented as of this encounter Plan of Treatment Not on file documented as of this encounter Visit Diagnoses Not on filedocumented in this encounter Additional Health Concerns Assessment Noted Time PHQ-9 Depression Total Score: 15 022 2:30 PM CDT documented as of this encounter Care Teams Pick Up Operator Relationship Specialty [place] [address] [place] [address] PCP - General FAMILY PRACTICE 06/10/22 documented as of this encounter
--- OUTSIDE RECORDS SUMMARY | 2024-09-21 13:55 | XMS_ITS | Referral Summary ---
Author Organization [facility] [address] Address [address] [place] [address] Care Team Providers Care Bookkeeping Machine Mechanic Name Role Phone Kevin Elena MD, Darren [...] on file Legal Sex Female 3:31 AM MANAGER RN CASE Gender Identity Not on file Sexual Orientation [...] on file Medical Devices Implanted Type Area Usability Engineer Device Identifier Shelf Expiration Date Model / Serial / Lot Sesay Vascular [id number] Starclose Se 6fr Clip Vascular Device Closure Nitinol Sterile - [id number] Implanted:Qty: 1 on 03/21/2019 at [facility] Sesay Vascular [id number] [id number] / / [employer] [id number]-[id number] Protege Gps Exprt 7mm 6fr 40mm 135cm Rapid Exchange Self Expand - [id number] Implanted:Qty: 1 on 03/21/2019 at [facility] [employer] 01/21/2020 [id number] / / [id number] Insurance MEDICARE MEDICARE Advance Directives For more information, please contact: [phone] * Full Code (Latest Code Status on File) Date Activated Date Inactivated Comments 03/21/2019 2:05 PM 03/22/2019 2:36 PM * Full Code Date Activated Date Inactivated Comments 03/15/2019 4:17 PM 03/16/2019 2:43 PM * Full Code Date Activated Date Inactivated Comments 03/15/2019 4:17 PM 03/15/2019 4:17 PM * Full Code Date Activated Date Inactivated Comments 03/15/2019 2:48 PM 03/15/2019 4:17 PM Care Teams Bookkeeping Machine Mechanic Relationship Specialty Start Date End Date Darren Brown Jr., MD [address] [place] [address] PCP - General 10/30/14
--- OUTSIDE RECORDS SUMMARY | 2024-09-21 13:55 | XMS_ITS | Encounter Summary ---
Author Organization [facility] Address [address] [place] [address] Care Team Providers Care Machine Rope Maker Name Role Phone Garth Lion MD Primary Care Provider [phone]- [phone] Encounter Details Date Type Department Care Team (Late st Contact Info) Description 09/07/2022 [facility] Message Enc [facility], [address] [address] My[address], [facility] Provider [facility] Social History Tobacco Use Types Packs/Day Years [...] Sex Assigned at Female 08/11/2024 10:23 AM LIVE AMMUNITION INSPECTOR Legal Sex Female 5:31 PM CDT Gender Identity Female 09/02/2021 3:19 PM LIVE AMMUNITION INSPECTOR Sexual Orientation Not on file COVID-19 Exposure Response Date Recorded In the last 10 days, have yo u been in contact with someone who was confirmed or suspected to have Coronavirus/COVID-19? No / Unsure 09/03/2022 12:51 PM LIVE AMMUNITION INSPECTOR documented as of this encounter Plan of Treatment Not on file documented as of this encounter Visit Diagnoses Not on filedocumented in this encounter Additional Health Concerns Assessment Noted Time PHQ-9 Depression Total Score: 15 022 2:30 PM CDT documented as of this encounter Care Teams Machine Rope Maker Relationship Specialty [place] [address] [place] [address] PCP - General FAMILY PRACTICE 06/10/22 documented as of this encounter
--- OUTSIDE RECORDS SUMMARY | 2024-09-21 13:55 | XMS_ITS | Encounter Summary ---
Author Organization [facility] Address [address] [place] [address] Care Team Providers Care Grade Teacher Name Role Phone Garth Lion MD Primary Care Provider [phone]- [phone] Encounter Details Date Type Department Care Team (Latest Contact Info) Description 09/14/2024 Scan [facility] Scanned, Doc Med Group Social History Tobacco Use Types Packs/Day Years Used Date Smoking Tobacco: Never Smokeless Tobacco: Never Alcohol Use Standard Drinks/Week Comments Not Currently 0 (1 standard drink = 0.6 oz pur e alcohol) PHQ-2 Answer Date Recorded Patient Health Questionnaire-2 Score 0 12/11/2022 Comments No Sex and Gender Information Value Date Recorded Sex Assigned at Female 08/11/2024 10:23 AM OPENSTACK CLOUD CONSULTING ARCHITECT Legal Sex Female 5:31 PM CDT Gender Identity Female 09/02/2021 3:19 PM OPENSTACK CLOUD CONSULTING ARCHITECT Sexual Orientation Not on file documented as of this encounter Plan of Treatment Not on file documented as of this encounter Visit Diagnoses Not on filedocumented in this encounter Additional Health Concerns Assessment Noted Time PHQ-9 Depression Total Score: 15 022 2:30 PM CDT documented as of this encounter Care Teams Grade Teacher Relationship Specialty [place] [address] [facility] [place] [place] [address] PCP - General FAMILY PRACTICE 06/10/22 documented as of this encounter
--- OUTSIDE RECORDS SUMMARY | 2024-09-21 13:55 | XMS_ITS | Encounter Summary ---
Author Organization [facility] Address [address] [place] [address] Care Team Providers Care Foundation Digger Name Role Phone Garth Lion MD Primary Care Provider [phone]- [phone] Encounter Details Date Type Department Care Team (Latest Contact Info) Description 09/21/2024 Travel Social History Tobacco Use Types Packs/Day Years Used Date Smoking Tobacco: Never Smokeless Tobacco: Never Alcohol Use Standard Drinks/Week Comments Not Currently 0 (1 standard drink = 0.6 oz pur e alcohol) PHQ-2 Answer Date Recorded Patient Health Questionnaire-2 Score 0 12/11/2022 Comments No Sex and Gender Information Value Date Recorded Sex Assigned at Female 08/11/2024 10:23 AM DECK CADET Legal Sex Female 5:31 PM CDT Gender Identity Female 09/02/2021 3:19 PM DECK CADET Sexual Orientation Not on file documented as of this encounter Plan of Treatment Not on file documented as of this encounter Visit Diagnoses Not on filedocumented in this encounter Additional Health Concerns Assessment Noted Time PHQ-9 Depression Total Score: 15 022 2:30 PM CDT documented as of this encounter Care Teams Foundation Digger Relationship Specialty [place] [address] [place] [address] PCP - General FAMILY PRACTICE 06/10/22 documented as of this encounter
--- OUTSIDE RECORDS SUMMARY | 2024-09-21 13:55 | XMS_ITS | Encounter Summary ---
Author Organization [facility] Address [address] [place] [address] Care Team Providers Care Placement Coordinator Name Role Phone Vidhi Ellis NP Primary Care Provider [phone] Garth Lion MD Primary Care Provider [phone] Encounter Details Date Type Department Care Team (Late st Contact Info) Description 04/02/2022 Digital Luxury Message Enc [facility] Medical Group Family & Internal Medicine [facility] [id number] [place] [address] Colin, [facility] Provider Due for routine follow up appt [...] Sex Assigned at Female 08/11/2024 10:23 AM GRAVITY PROSPECTING OBSERVER Legal Sex Female 5:31 PM CDT Gender Identity Female 09/02/2021 3:19 PM GRAVITY PROSPECTING OBSERVER Sexual Orientation Not on file COVID-19 Exposure [...] documented as of this encounter Care Teams Placement Coordinator Relationship Specialty [place] [address] [address] [facility] [address] [place] [address] PCP - General Nurse Practitioner Family 10/03/2106/09/22 [place] [address] [place] [address] PCP - General FAMILY PRACTICE 06/10/22 documented as of this encounter
--- OUTSIDE RECORDS SUMMARY | 2024-09-21 13:55 | XMS_ITS | Encounter Summary ---
Author Organization [facility] Address [address] [place] [address] Care Team Providers Care Director Environmental Name Role Phone Vidhi Ellis NP Primary Care Provider [phone] Garth Lion MD Primary Care Provider [phone] [phone] Encounter Details Date Type Department Care Team (Late st Contact Info) Description 04/29/2022 Prep for Procedure [facility] [address] [place] [address] Bi Rutledge MD [address] [place] [address] Social History Tobacco Use Types Packs/Day [...] Sex Assigned at Female 08/11/2024 10:23 AM TACK PULLER MACHINE Legal Sex Female 5:31 PM CDT Gender Identity Female 09/02/2021 3:19 PM TACK PULLER MACHINE Sexual Orientation Not on file COVID-19 Exposure Response Date Recorded In the last 10 days, have yo u been in contact with someone who was confirmed or suspected to have Coronavirus/COVID-19? No / Unsure 05/01/2022 10:56 AM CDT documented as of this encounter Plan of Treatment Not on file documented as of this encounter Results * ECG 12-Lead (04/29/2022 2:30 PM CDT) 04/29/2022 2:30 PM CDT Narrative [facility] RAD - 04/29/2022 6:[address] [facility] Test Date: 2022-04-29 Pat Name: YOLIS TILA Department: 85 Room: Gender: Female Biological Sciences Instructor: : 1955 Requested By: BI RUTLEDGE Order Number: [id number] Zaheer MD: Anthony Daniel Measurements Intervals Liberty Rate: 60 P: SC: 0 QRS: 7 QRSD: 96 T: 60 QT: 455 QTc: 457 Interpretive Statements ATRIAL FIBRILLATION ABNORMAL RHYTHM ECG Compared to ECG 08/31/2019 09:23:26 No significant changes Procedure Note Anthony Daniel MD - 04/29/2022 [facility] Test Date: 2022-04-29 Pat Name: YOLIS CLARK Department: 85 Room: Gender: Female Biological Sciences Instructor: : 1955 Requested By: BI RUTLEDGE Order Number: [id number] Zaheer CEDEÑO: Anthony Daniel Measurements Intervals Liberty Rate: 60 P: SC: 0 QRS: 7 QRSD: 96 T: 60 QT: 455 QTc: 457 Interpretive Statements ATRIAL FIBRILLATION ABNORMAL RHYTHM ECG Compared to ECG 08/31/2019 09:23:26 No significant changes us Bi Rutledge MD ECG ORDERABLES Final Result [facility] RAD documented in this encounter Visit Diagnoses Diagnosis Pre-op testing- Primary Preoperative examination, unspecified Pre-op testing Preoperative examination, unspecified documented in this encounter Additional Health Concerns Assessment Noted Time PHQ-9 Depression Total Score: 15 022 2:30 PM CDT documented as of this encounter Care Teams Director Environmental Relationship Specialty [place] [address] [address] [facility] [address] [place] [address] PCP - General Nurse Practitioner Family 10/03/2106/09/22 [place] [address] [place] [address] PCP - General FAMILY PRACTICE 06/10/22 documented as of this encounter
--- OUTSIDE RECORDS SUMMARY | 2024-09-21 13:55 | XMS_ITS | Encounter Summary ---
Author Organization [facility] Address [address] [place] [address] Care Team Providers Care Stretcher Drier Operator Name Role Phone Garth Lion MD Primary Care Provider [phone]- [phone] Encounter Details Date Type Department Care Team (Late st Contact Info) Description 06/22/2022 Zaelab Message Enc [facility] Medical Group Family & Internal Medicine [facility] [address] [place] [address] [place] [address] [place] [address] Headaches Social History Tobacco Use [...] Sex Assigned at Female 08/11/2024 10:23 AM ENGINE REPAIRER SERVICE Legal Sex Female 5:31 PM CDT Gender Identity Female 09/02/2021 3:19 PM ENGINE REPAIRER SERVICE Sexual Orientation Not on file COVID-19 Exposure Response Date Recorded In the last 10 days, have yo u been in contact with someone who was confirmed or suspected to have Coronavirus/COVID-19? No / Unsure 06/12/2022 11:29 AM ENGINE REPAIRER SERVICE documented as of this encounter Plan of Treatment Not on file documented as of this encounter Visit Diagnoses Not on filedocumented in this encounter Additional Health Concerns Assessment Noted Time PHQ-9 Depression Total Score: 15 022 2:30 PM CDT documented as of this encounter Care Teams Stretcher Drier Operator Relationship Specialty [place] [address] [place] [address] PCP - General FAMILY PRACTICE 06/10/22 documented as of this encounter
--- OUTSIDE RECORDS SUMMARY | 2024-09-21 13:55 | XMS_ITS | Encounter Summary ---
Author Organization [facility] Address [address] [place] [address] Care Team Providers Care Folder Inspector Name Role Phone Garth Lion MD Primary Care Provider [phone]- [phone] Encounter Details Date Type Department Care Team (Late st Contact Info) Description 09/21/2024 Orders Only [facility] [address] [place] [id number] Marita Bradley FNP [address] [address] Social History Tobacco Use Types Packs/Day Years Used Date Smoking Tobacco: Never Smokeless Tobacco: Never Alcohol Use Standard Drinks/Week Comments Not Currently 0 (1 standard drink = 0.6 oz pur e alcohol) PHQ-2 Answer Date Recorded Patient Health Questionnaire-2 Score 0 12/11/2022 Comments No Sex and Gender Information Value Date Recorded Sex Assigned at Female 08/11/2024 10:23 AM HABILITATION WORKER Legal Sex Female 5:31 PM CDT Gender Identity Female 09/02/2021 3:19 PM HABILITATION WORKER Sexual Orientation Not on file documented as of this encounter Plan of Treatment Not on file documented as of this encounter Results * (ABNORMAL) CBC, AUTO, NO DIFF (09/21/2024 11:07 AM CDT) WBC 5.45 4.4 - 11.0 x10'3/uL 09/21/2024 11:12 AM CDT [facility] RBC 3.80(L) 4.50 - 5.10 x10'6/uL 09/21/2024 11:12 AM CDT [facility] HGB 11.0(L) 12.3 - 15.3 G/DL 09/21/2024 11:12 AM CDT [facility] HCT 34.1(L) 35.9 - 44.6 % 09/21/2024 11:12 AM CDT [facility] MCV 89.7 80.0 - 96.0 FL 09/21/2024 11:12 AM CDT [facility] MCH 28.9 25.3 - 30.9 PG 09/21/2024 11:12 AM CDT [facility] MCHC 32.3 31.0 - 34.1 G/DL 09/21/2024 11:12 AM CDT [facility] RDW 13.5 12.4 - 15.1 % 09/21/2024 11:12 AM CDT [facility] PLT 176 151 - 353 x10'3/uL 09/21/2024 11:12 AM CDT [facility] MPV 10.1 9.6 - 12.0 FL 09/21/2024 11:12 AM CDT [facility] 09/21/2024 11:0 7 AM CDT us [facility] Final Result [facility] [address] [place] [address], * IRON SAT PANEL (IRON,IBC,%SAT) (09/21/2024 11:07 AM CDT) IRON 71 50 - 170 MCG/DL 09/21/2024 11:32 AM CDT [facility] IRON BINDING CAPACITY 363 250 - 450 MCG/DL 09/21/2024 11:32 AM CDT [facility] IRON SATURATION 20 20 - 55 % 11:32 AM CDT [facility] 09/21/2024 11:0 7 AM CDT Marita Bradley [facility] Final Result [facility] [address] [place] [address], [place] [phone] * FERRITIN (09/21/2024 11:07 AM CDT) FERRITIN 32.0 8.0 - 388.0 NG/ML 09/21/2024 11:42 AM CDT [facility] 09/21/2024 11:0 7 AM CDT [facility] Final Result [facility] [address] [place] [address], [place] [phone] * (ABNORMAL) VITAMIN B12 / FOLATE (09/21/2024 11:07 AM CDT) VITAMIN B12 S/P/B 908 193 - 986 PG/ML 09/21/2024 11:56 AM CDT [facility] FOLATE 6.9(L) 8.6 - 58.9 NG/ML 09/21/2024 11:56 AM CDT [facility] 09/21/2024 11:0 7 AM CDT Marita Bradley [facility] Final Result [facility] [address] [place] [address], documented in this encounter Visit Diagnoses Diagnosis Anemia, unspecified- Primary documented in this encounter Additional Health Concerns Assessment Noted Time PHQ-9 Depression Total Score: 15 022 2:30 PM CDT documented as of this encounter Care Teams Folder Inspector Relationship Specialty [place] [address] [place] [address] PCP - General FAMILY PRACTICE 06/10/22 documented as of this encounter
--- OUTSIDE RECORDS SUMMARY | 2024-09-21 13:55 | XMS_ITS | Encounter Summary ---
Author Organization [facility] Address [address] [place] [address] Care Team Providers Care Raw Stock Machine Feeder Name Role Phone Paul Lion MD Primary Care Provider [phone] Reason for Visit * Reason Comments Hypertension Lipids Palpitations Encounter Details Date Type Department Care Team (Late st Contact Info) Description 09/21/2024 10:30 AM CDT Office Visit [facility] [phone] Marita Bradley, SAFIA [address] [place] [address] Hypertension; Lipids; Palpitations Social History Tobacco Use Types Packs/Day Years Used Date Smoking Tobacco: Never Smokeless Tobacco: Never Alcohol Use Standard Drinks/Week Comments Not Currently 0 (1 standard drink = 0.6 oz pur e alcohol) PHQ-2 Answer Date Recorded Patient Health Questionnaire-2 Score 0 12/11/2022 Comments No Sex and Gender Information Value Date Recorded Sex Assigned at Female 08/11/2024 10:23 AM ROLL THREADER OPERATOR Legal Sex Female 5:31 PM CDT Gender Identity Female 09/02/2021 3:19 PM ROLL THREADER OPERATOR Sexual Orientation Not on file documented as of this encounter Last Filed Vital Signs Vital Sign Reading Time Taken Comments Blood Pressure 110/60 09/21/2024 10:28 AM CDT Pulse 64 09/21/2024 10:28 AM CDT Temperature - - Respiratory Rate - - Oxygen Saturation - - Inhaled Oxygen Concentration - - Weight 63.5 kg (140 lb) 09/21/2024 10:28 AM CDT Height 162.6 cm (5' 4 ) 09/21/2024 10:28 AM CDT Body Mass Index 24.03 09/21/2024 10:28 AM CDT documented in this encounter Progress Notes * Maritajaison Bradley, MACHINE CEMENTER - 09/21/2024 10:30 AM CDT Reason for Visit: Hypertension, Lipids, and Palpitations History of Present Illness: Marlys Clark is a pleasant 69-year-old female who has a past medical history of significant for severe, bilateral carotid stenosis s/p L ICA endarterectomy (2006)?? with restenosis requiring stenting and R ICA stent and angioplasty (2018), left hemispheric stroke, TIA, chronic palpitations, LVOT, hypertension, hyperlipidemia who presents today for her scheduled follow up visit. She was seen for an initial consultation in June of 2022 for evaluation of palpitations, HAs and higher Bps around that time. The HAs an higher BPs seem somewhat better with addition of losartan,but she still with significant palps. Would occur primarily at night and especially after coming back form the bathroom lasting for a couple minutes then goes away. She has since had an echo and MCT the end of last year, as below. Not really symptomatic with palpsany more. No new MARES or orthopnea. Her has since passed back in June. Still grieving but appears to be holding up okay. Tolerating meds well. No hx of coronary PCI or CABG. She is a nonsmoker. No clear family history of early heart disease. Her father also had carotid stenosis. Labs: Lab Results Component Value Date/Time CHOL 194 11/05/2023 11:51 AM HDL 81 11/05/2023 11:51 AM LDL 96 11/05/2023 11:51 AM TRI 84 11/05/2023 11:51 AM CR 1.01 06/22/2024 12:26 PM Data Reviewed: CAU (02/2019) - CHAYO > 70%, LIC severe (near occlusion) 48 HM - Avg hr 61, range 48-95. PACs 3% of the time. Episodes of palpitations not related to any clear arrhythmia/ectopy. ETT - no ishemia on EKG/symptoms Echo (06/2022) - EF of > 55%. No clear LVH seen, though probably asymmetric septal hypertrophy. 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 Mild MR. CAU (09/2022) - < 49% stenosis b/l Echo (05/2024) - EF normal, mild LVH, no sig valve dysfunction HM (05/2024) - < 1% ectopy, no clear arrhythmias, avg HR 61. Recommendations and Plan: LVOT - No clear significant gradient on most recent echo, repeat next echo at [facility] Palpitations/bradycardia - MCT reassuring, improved symptoms. She continues on Bystolic. No changes. Carotid surgery/stent - previously followed by Dr. Beverly. Not clear why she is on brilinta daily -seems to be inappropriate dose. Would consider switching to ASA 81mg daily and plavix 75mg daily. Since she has been taking for so long, and tolerating it well, she wishes to leave meds as they are at this time. HTN - controlled. HLP - tolerating statin. New lipids pending for this year. Anemia - new labs pending. Plan pending results. Follow up in 3-6 months, sooner if needed. Medications: Current Outpatient Medications: amLODIPine (NORVASC) 5 MG tablet, TAKE 1 TABLET (5 MG TOTAL) BY MOUTH DAILY., Disp: 90 tablet, Rfl:1 aspirin EC (ECOTRIN) 81 MG tablet, Take 1 tablet (81 mg total) by mouth daily., Disp: , Rfl: busPIRone (BUSPAR) 7.5 MG tablet, TAKE 1 TABLET BY MOUTH 3 TIMES A DAY BY MOUTH NEEDED FOR ANXIETY (Patient not taking: Reported on 09/21/2024), Disp: 270 tablet, Rfl: 1 celecoxib 100 MG capsule, Take 1 capsule (100 mg total) by mouth as needed. (Patient not taking: Reported on 09/21/2024), Disp: , Rfl: HYDROcodone-acetaminophen (NORCO) 5-325 MG [...] rectally 4(four) times daily as needed for Hemorrhoids. (Patient not taking: Reported on 09/21/2024), Disp: 24suppository, Rfl: 2 RECTIV 0.4 % Ointment, APPLY RECTALLY TWICE DAILY FOR 14 DAYS, Disp: 30 g, Rfl: 0 rosuvastatin (CRESTOR) 10 MG tablet, TAKE 1 TABLET BY MOUTH EVERY DAY, Disp: 90 tablet, Rfl: 1 sertraline (ZOLOFT) [...] MOUTH NIGHTLY., Disp: 60 tablet, Rfl: 3 valACYclovir (VALTREX) 1 g tablet, Take 1 tablet (1,000 mg total) by mouth 3 (three) times daily. For acute outbreak., Disp: 21 tablet, Rfl: 3 Review of patient's allergies indicates: No Known Allergies Past Medical History: Diagnosis Date Coronary artery disease COVID-19 vaccine administered 2020 Hammer toe 05/12/2018 Influenza vaccine administered 2019 Past Surgical History: Procedure Laterality Date CAROTID ENDARTERECTOMY Left 2018 2006 LEFT CEA, 2019 BILATERAL CAROTID STENTS PLACED CARPAL TUNNEL RELEASE Bilateral 2009 SECTION 1976 COLONOSCOPY N/A 05/01/2022 COLONOSCOPY negative performed by Deshawn Rutledge MD at [facility] OR ARTHROPLASTY TOE Right 2014 SURG IMG LAP SLEEVE GASTRECTOMY N/A 2017 TCAT IV STENT CRV CRTD ART EMBOLIC PROTECJ Bilateral 03/15/2019 Right ICA, placed following angioplasty, Left ICA placed 03/21/2019 Social History Tobacco Use Smoking status: Never Smokeless tobacco: Never Vaping Use Vaping status: Never Used Substance Use Topics Alcohol use: Not Currently Drug use: Never Family History Problem Relation Name Age of Onset Asthma Mother Heart Disease Father Cancer Father Lung Cancer Colon Cancer Brother Colon polyps Brother Colon polyps Brother Colon polyps Brother Breast Cancer Neg Hx Family Status Relation Name Status Mother Father Brother Brother Alive Brother Alive Brother Alive Neg Hx (Not Specified) No partnership data on file Review of Systems Constitutional: Positive for weight loss. Negative for recent unintentional weight gain and new or significant fatigue. HENT: Negative for new or significant hearing loss and headaches. Eyes: Negative for blurred vision and double vision. Respiratory: Positive for cough (occasional). Negative for new or significant shortness of breath, wheezing, snoring and hemoptysis. Cardiovascular: See HPI. Negative for palpitations and orthopnea. Gastrointestinal: Negative for heartburn, nausea, vomiting, abdominal pain, constipation, blood in stool and melena. Genitourinary: Negative for dysuria. Musculoskeletal: Negative for myalgias and new or worsening joint stiffness/pain. Skin: Negative for rash. Neurological: Negative for dizziness, tingling/numbness, focal weakness, LOC and imbalance. Endo/Heme/Allergies: Positive for easy bruising/bleeding. Negative for polydipsia. Psychiatric/Behavioral: Positive for nervous/anxious. Negative for depression and new or significant memory loss. All other systems reviewed and are negative. Vitals: 09/21/24 1028 BP: 110/60 Pulse: 64 Weight: 63.5 kg (140 lb) Height: 1.626 m (5' 4 ) Body mass index is 24.03 kg/m??. Cardiac Exam Rate/Rhythm: Normal rate and regular rhythm. PMI: PMI is not displaced. Pulses: Normal pulses. Carotid pulses are on the right side with bruit. Dorsalis pedis pulses are 2+ on the right side and 2+ on the left side. Heart Sounds: Normal S1 sounds. Normal S2 sounds. No gallop present. No S3. No S4. Murmurs: Murmur present Negative for edema. Physical Exam Constitutional: No distress. Healthy Appearance. HENT: Oropharynx clear. Eyes: Pupils equal, round, and reactive to light. Conjunctivae normal. Neck: Neck supple. No JVD. Abdomen: Abdomen soft. Bowel sounds normal. No distension. No tenderness. Pulmonary: Effort normal. Breath sounds normal. Skin: Dry. Warm. No rash. No cyanosis. No clubbing. No xanthoma. Musculoskeletal: No kyphosis. Normal ROM. Neurological: Alert. Oriented x 3. Appropriate mood and affect. Normal motor skills. Normal gait. Comments: Diagnoses/Impression: No diagnosis found. Referring Provider: No ref. provider found PCP: PAUL LION MD documented in this encounter Plan of Treatment Not on file documented as of this encounter Visit Diagnoses Diagnosis Anemia, unspecified type- Primary Bilateral carotid artery stenosis Occlusion and stenosis of multiple and bilateral precerebral arteries without mention of cerebral infarction Palpitations Essential (primary) hypertension Unspecified essential hypertension Mixed hyperlipidemia documented in this encounter Additional Health Concerns Assessment Noted Time PHQ-9 Depression Total Score: 15 10/08/ 022 2:30 PM CDT documented as of this encounter Care Teams Raw Stock Machine Feeder Relationship Specialty [place] [address] [place] [address] PCP - General FAMILY PRACTICE 06/10/22 documented as of this encounter
--- OUTSIDE RECORDS SUMMARY | 2024-09-21 13:55 | XMS_ITS | Clinical Summary ---
Author Organization [facility] Address [facility] [place] [address] Care Team Providers Care Neurology Director Name Role Phone Paul Lion MD Primary Care Provider [phone] Allergies No known active allergies Medications aspirin EC (ECOTRIN) 81 MG tablet Take 1 tablet (81 mg total) by mouth daily. Active phenylephrine-cocoa butter (PREPARATION H) 0.25-88.44 % suppositoryIndications :Hemorrhoids, unspecified hemorrhoid type Place 1 suppository rectally 4 (four) times daily as needed for Hemorrhoids. 24 suppository 2 2021 Active Additional Information Patient not taking.Reported on 09/21/2024 celecoxib 100 MG capsule Take 1 capsule (100 mg total) by mouth as needed. 2021 Active RECTIV 0.4 % OintmentIndications:An al pain APPLY RECTALLY TWICE DAILY FOR 14 DAYS 30 g 2022 Active valACYclovir (VALTREX) 1 g tabletIndications:HSV (herpes simplex virus) anogenital infection Take 1 tablet (1,000 mg total) by mouth 3 (three) times daily. For acute outbreak. 21 tablet 3 2023 Active amLODIPine (NORVASC) 5 MG tabletIndications:Esse [...] FOR ANXIETY 270 tablet 1 2024 Active Additional Information Patient not taking.Reported on 09/21/2024 HYDROcodone-acetaminop hen (NORCO) 5-325 MG tabletIndications:Acut e Pain < 7 Day Supply Take 1 tablet by mouth every 6 (six) hours as needed for Pain. Indications: Acute Pain < 7 Day Supply 28 tablet 2024 Active rosuvastatin (CRESTOR) 10 MG tabletIndications:[place] tid artery stenosis, symptomatic, bilateral,Pure hypercholesterolemia TAKE 1 TABLET BY MOUTH EVERY DAY 90 tablet 1 2024 Active chlorhexidine (PERIDEX) 0.12 % solution RINSE WITH 1/2 OZ TWICE DAILY FOR 1 WEEK. SWISH FOR 30 SECONDS THEN SPIT, DO NOT SWALLOW. 09/21 Discontinued( Therapy completed) rosuvastatin (CRESTOR) 10 MG tabletIndications:[place] tid artery stenosis, symptomatic, bilateral,Pure hypercholesterolemia take 1 tablet by mouth every day 90 tablet 1 08/28 Discontinued traMADol (ULTRAM) 50 MG tablet Take 1 tablet (50 mg total) by mouth every 6 (six) hours as needed. 09/21 Discontinued( Therapy completed) Active Problems Problem Noted Date Diagnosed Date Hemorrhoids 04/24/2022 Overview (04/24/2022): Added automatically from request for surgery [id number] Pure hypercholesterolemia 04/02/2021 Medication management 11/22/2020 Essential [...] Encounters Date Type Department Care Team Description 09/21/2024 11:00 AM CDT Hospital Encounter [facility] [address] [place] [address] Marita Bradley FNP Arrived 09/21/2024 10:30 AM CDT [facility] [address] [place] [id number] Marita Bradley FNP Hypertension; Lipids; Palpitations 09/21/2024 Orders Only [facility] [address] [place] [address] Marita Bradley FNP 09/21/2024 Travel 09/18/2024 Telephone [facility] - [address] [address] Paul Lion MD 09/14/2024 Scan [facility] SRVCS Scanned, [facility] 09/07/2024 Telephone [facility] [address] [address] Paul Lion MD Information 08/15/2024 Scan [facility] INFO [facility]VCS Scanned, [facility] Lab (SCAN) 08/11/2024 10:20 AM LIFE SKILLS TEACHER Office Visit [facility] [address] [address] Paul Lion MD Follow Up; Hypertension 08/11/2024 Travel 08/09/2024 Telephone [facility], [address] [phone] Addy Ahumada MD Surgical Clearance 06/23/2024 Telephone [facility], [place] [address] [place], [place] [phone] Marita Bradley FNP Results from Last 3 [...] (Prevnar 13) 05/12/2014 Shingrix 04/17/2021,06/18/2020,04/09/2020 Zoster (Zostavax) 93598 Unt/0.65Ml 04/02/2009 Family History Medical History Relation [...] Sex Assigned at Female 08/11/2024 10:23 AM LIFE SKILLS TEACHER Legal Sex Female 5:31 PM CDT Gender Identity Female 09/02/2021 3:19 PM LIFE SKILLS TEACHER Sexual Orientation Not on file Last Filed Vital Signs Vital Sign Reading Time Taken Comments Blood Pressure 110/60 09/21/2024 10:28 AM CDT Pulse 64 09/21/2024 10:28 AM CDT Temperature 36.1 C (97 F) 08/11/2024 10:21 AM LIFE SKILLS TEACHER Respiratory Rate 16 08/11/2024 10:21 AM LIFE SKILLS TEACHER Oxygen Saturation 95% 08/11/2024 10:21 AM LIFE SKILLS TEACHER Inhaled Oxygen Concentration - - Weight 63.5 kg (140 lb) 09/21/2024 10:28 AM CDT Height 162.6 cm (5' 4 ) 09/21/2024 10:28 AM CDT Body Mass Index 24.03 09/21/2024 10:28 AM CDT Plan of Treatment Health Maintenance Due Date Last Done Comments Hepatitis C 1971 DTaP, Tdap and Td Vaccines (1 - Tdap) 1972 Annual Medicare Wellness Visit 2018 COVID-19 Vaccine ( season) 2024 06/03/2021, 10/04/2020, 09/13/2020 PHQ-2 (Physician [place]) 07/05/2024 12/11/2022 Mammogram Screening 09/30/2024 09/30/2022, 01/13/2021, [...] this topic Medical Devices Implanted Type Area Manager Business Device Identifier Shelf Expiration Date Model / Serial / Lot Intramedullary Arthrodesis Implant Implanted:Qty: 1 on 09/05/2019 by Denise Monroy DPM at [facility] Left: Toe 09/02/2023 REF NO [id number]-[id number] / / [id number] Procedures Procedure Name Priority Date/Time Associated Diagnosis Comments CBC, AUTO, NO DIFF Routine 09/21/2024 11 :07 AM CDT Anemia, unspecified IRON SAT PANEL (IRON,IBC,%SAT) Routine 09/21/2024 11:07 AM CDT Anemia, unspecified FERRITIN Routine 09/21/2024 11:07 AM CDT Anemia, unspecified VITAMIN B12 / FOLATE Routine 09/21/2024 11:07 AM CDT Anemia, unspecified OUTSIDE LAB (SCAN ORDER) 08/15/2024 OUTSIDE LAB (SCAN ORDER) 08/15/2024 OUTSIDE LAB (SCAN ORDER) 08/15/2024 OUTSIDE LAB (SCAN ORDER) 08/15/2024 OUTSIDE LAB (SCAN ORDER) 08/15/2024 OUTSIDE LAB (SCAN ORDER) 08/15/2024 MG DIAG W ELOISE BILAT DIGI Routine 09/30/2022 2:12 PM CDT Mass overlapping multiple quadrants of right breast BONE DENSITY/DEXA Routine 07/24/2021 11: 00 AM LIFE SKILLS TEACHER Postmenopausal estrogen deficiency Screening for osteoporosis COLONOSCOPY GENERIC (SCAN ORDER) 11/23/2016 from Last 3 Months or Most Recently Relevant to Health Maintenance Results * (ABNORMAL) VITAMIN B12 / FOLATE (09/21/2024 11:07 AM CDT) VITAMIN B12 S/P/B 908 193 - 986 PG/ML 09/21/2024 11:56 AM CDT [facility] FOLATE 6.9(L) 8.6 - 58.9 NG/ML 09/21/2024 11:56 AM CDT [facility] 09/21/2024 11:0 7 AM CDT Marita Bradley HOTEL BREAKFAST ATTENDANT LABORATORY Final Result [facility] [address] [place] [address], * IRON SAT PANEL (IRON,IBC,%SAT) (09/21/2024 11:07 AM CDT) IRON 71 50 - 170 MCG/DL 09/21/2024 11:32 AM CDT [facility] IRON BINDING CAPACITY 363 250 - 450 MCG/DL 09/21/2024 11:32 AM CDT [facility] IRON SATURATION 20 20 - 55 % 11:32 AM CDT [facility] 09/21/2024 11:0 7 AM CDT Marita Giordano Kirk HOTEL BREAKFAST ATTENDANT LABORATORY Final Result [facility] [address] [place] [address], * (ABNORMAL) CBC, AUTO, NO DIFF (09/21/2024 11:07 AM CDT) WBC 5.45 4.4 - 11.0 x10'3/uL 09/21/2024 11:12 AM CDT [facility] RBC 3.80(L) 4.50 - 5.10 x10'6/uL 09/21/2024 11:12 AM CDT [facility] HGB 11.0(L) 12.3 - 15.3 G/DL 09/21/2024 11:12 AM CDT [facility] HCT 34.1(L) 35.9 - 44.6 % 09/21/2024 11:12 AM CDT [facility] MCV 89.7 80.0 - 96.0 FL 09/21/2024 11:12 AM CDT [facility] MCH 28.9 25.3 - 30.9 PG 09/21/2024 11:12 AM CDT [facility] MCHC 32.3 31.0 - 34.1 G/DL 09/21/2024 11:12 AM CDT [facility] RDW 13.5 12.4 - 15.1 % 09/21/2024 11:12 AM CDT [facility] PLT 176 151 - 353 x10'3/uL 09/21/2024 11:12 AM CDT [facility] MPV 10.1 9.6 - 12.0 FL 09/21/2024 11:12 AM CDT [facility] 09/21/2024 11:0 7 AM CDT Marita Bradley HOTEL BREAKFAST ATTENDANT LABORATORY Final Result [facility] [address] [place] [address], [place] [phone] * FERRITIN (09/21/2024 11:07 AM CDT) FERRITIN 32.0 8.0 - 388.0 NG/ML 09/21/2024 11:42 AM CDT [facility] 09/21/2024 11:0 7 AM CDT Marita Bradley HOTEL BREAKFAST ATTENDANT LABORATORY Final Result Performing Organization Address [facility] Co de Phone Number [facility] [address] [place] [address], [place] [phone] * OUTSIDE LAB (SCAN ORDER) (08/15/2024) Only the most recent of6 resultswithin the time period is included. 08/15/2024 [facility] Scanned SCANNING Final Resu lt * MG DIAG W ELOISE BILAT DIGI (09/30/2022 2:12 PM CDT) Anatomical Region Laterality [...] t * BONE DENSITY/DEXA (07/24/2021 11:00 AM LIFE SKILLS TEACHER) Anatomical Region Laterality Modality Bone Bone Density 07/24/2021 11:0 5 AM LIFE SKILLS TEACHER Narrative 07/24/2021 11:07 AM LIFE SKILLS TEACHER IMAGING STUDIES: BONE DENSITY/DEXA DATE: 07/24/2021 11:00 [...] to Health Maintenance Insurance [employer] Care Teams Neurology Director Relationship Specialty [place] [address] [place] [address] PCP - General FAMILY PRACTICE 06/10/22
--- OUTSIDE RECORDS SUMMARY | 2024-09-21 13:55 | XMS_ITS | Clinical Summary ---
Author Organization [facility] [address] Address [address] [place] [address] Care Team Providers Care Web Press Jogger Name Role Phone Kevin Elena MD, Darren [...] on file Legal Sex Female 3:31 AM ENTERPRISE SERVICES MANAGER Gender Identity Not on file Sexual Orientation [...] history exists Medical Devices Implanted Type Area Hood Fitter Device Identifier Shelf Expiration Date Model / Serial / Lot Sesay Vascular [id number] Starclose Se 6fr Clip Vascular Device Closure Nitinol Sterile - [id number] Implanted:Qty: 1 on 03/21/2019 at [facility] [employer] [id number] [id number] / / [employer] [id number] Protege Gps Exprt 7mm 6fr 40mm 135cm Rapid Exchange Self Expand - [id number] Implanted:Qty: 1 on 03/21/2019 at [facility] [employer] 01/21/2020 SECX-7 [id number] / / [id number] Insurance MEDICARE Member Subscriber Plan / Payer ( fective 2018-Present) Name:Marlys Clark Member ID:[id number] Relation to Subscriber:Self Name:Marlys Clark Subscriber ID:[id number] Payer ID:[id number] Group ID:Not on file Type:MEDICARE TRADITIONAL Address: [place] [id number] MEDICARE Advance Directives For more information, please contact: [phone] * Full Code (Latest Code Status on File) Date Activated Date Inactivated Comments 03/21/2019 2:05 PM 03/22/2019 2:36 PM * Full Code Date Activated Date Inactivated Comments 03/15/2019 4:17 PM 03/16/2019 2:43 PM * Full Code Date Activated Date Inactivated Comments 03/15/2019 4:17 PM 03/15/2019 4:17 PM * Full Code Date Activated Date Inactivated Comments 03/15/2019 2:48 PM 03/15/2019 4:17 PM Care Teams Web Press Jogger Relationship Specialty Start Date End Date Darren Brown Jr., MD [address] [place] [address] PCP - General 10/30/14
== END 2024-09-21 13:30 | disposition home or self-care (01) ==
PROVIDERS: PCP Family Medicine; Visit Provider Surgery Plastic and Reconstructive Surgery
DX: Z01.810 Encounter for preprocedural cardiovascular examination (principal); R00.1 Bradycardia, unspecified; I10 Essential (primary) hypertension
CPT/HCPCS: 93005

== ENCOUNTER 2024-09-28 00:26 | Day surgery (SDC) | payer OTHER, SELFPAY ==
--- NOTE | 2024-09-18 14:59 | PC.NURSE ---
Report to the Outpatient Waiting Room, entrance under the green pavilion located off [facility], at time __6 AM on date _09/28/24 . Planned Procedure Time: __730 AM .? Time changes happen often and if your time is changed the preop area will call you the afternoon before. - You and your visitor will be asked to self-screen and do not enter if you have any COVID symptoms. Please call surgeon if you need to reschedule. - A mask is optional within the hospital at this time. Patients may have clear liquids (water, carbonated beverages, clear teas, apple juice) until 3 hours prior to surgery (4 :30 AM) with a maximum of 20 ounces. - No food from midnight until time of surgery and no smoking, or chewing tobacco (or any form of nicotine). No chewing gum, candy or mints. Take only the following medications with a SIP of water on the morning of surgery: __AMLODIPINE,NEBIVOLOL,SERTRALINE DO NOT STOP ANY OF YOUR OTHER PRESCRIPTION MEDICATIONS PRIOR TO SURGERY EXCEPT THE FOLLOWING Hold all vitamins and supplements for 3 days per anesthesiologist. Medications to discontinue per physician __PT STATES HOLD___[place] HOLD 7 DAYS_PRE OP ASPIRIN PER DR VALERO Date to take last dose___09/20/24 Please no make-up, nail icelandic, hairspray, perfume, deodorant, or body powder the day of surgery.? No jewelry (including any body piercings) or valuables the day of surgery, leave them at home.? Please take a shower or bath the night before, or the morning of, surgery with an antibacterial soap.? Wear comfortable, loose fitting clothing.? Children are encouraged to wear pajamas. - Jewelry must be removed prior to entering the operating room.? Rings and piercings that are not removed may be cut off. - The hospital will not accept responsibility for valuables.? - Please leave all valuables, including medications, at home the day of surgery. If you are going home after surgery, a licensed paratransit driver must drive you home.? - NO public transportation without another adult if you receive anesthesia. - We recommend that an adult stay with you for 24 hours following discharge. - We also recommend that you do not drive, make important decision, drink alcoholic beverages, or take any drugs that were not prescribed by your health care provider for at least 24 hours after your discharge time. Follow any additional instructions given to you from your surgeon. Telephone instructions given to _PATIENT and asked if any additional questions and then verbalized understanding. Patient advised to call surgeon office or pre surgery nurse liaison [phone] if any additional questions.
[2024-09-18 15:23] VITALS: BMI 23.6
[2024-09-28] VITALS (9 sets, daily range): BP systolic 99–140; BP diastolic 37–61; PULSE 58–85; RESP 10–16; TEMP 36.2–36.8; O2SAT 94–100; BMI 23.6
--- OUTSIDE RECORDS SUMMARY | 2024-09-28 00:28 | XMS_ITS | Encounter Summary ---
Author Organization [facility] Address [address] [place] [address] Care Team Providers Care Rat Culturist Name Role Phone Vidhi Ellis NP Primary Care Provider [phone] Garth Lion MD Primary Care Provider [phone] Encounter Details Date Type Department Care Team (Late Contact Info) Description 04/02/2022 Rebel Monkey Message Enc [facility] Family & Internal Medicine [address] [address] Colin, [facility] Provider Due for routine follow [...] Sex Assigned at Female 08/11/2024 10:23 AM HYDRAULIC PLUMBER Legal Sex Female 5:31 PM CDT Gender Identity Female 09/02/2021 3:19 PM HYDRAULIC PLUMBER Sexual Orientation Not on file COVID-19 Exposure Response Date Recorded In the last 10 days, have yo u been in contact with someone who was confirmed or suspected to have Coronavirus/COVID-19? No / Unsure 03/10/2022 7:30 AM CDT documented as of this encounter Plan of Treatment Upcoming Encounters Date Type Department Care Team (Late Contact Info) Description 10/10/2024 8:00 AM CDT Appointment [facility] [address] [place] [address] Marita Bradley FNP [address] [facility] [address] [place] [address] 04/05/2025 11:45 AM CDT [facility] [address] [place] [phone] Addy Ahumada MD Three [facility]. [address] [place], [place] [address] documented as of this encounter Visit Diagnoses Not on filedocumented in this encounter Additional Health Concerns Assessment Noted Time PHQ-9 Depression Total Score: 15 022 2:30 PM CDT documented as of this encounter Care Teams Rat Culturist Relationship Specialty [place] [address] [facility] [address] [place] [address] PCP - General Nurse Practitioner Family 10/03/2106/09/22 [place] [address] [place] [address] PCP - General FAMILY PRACTICE 06/10/22 documented as of this encounter
--- OUTSIDE RECORDS SUMMARY | 2024-09-28 00:28 | XMS_ITS | Encounter Summary ---
Author Organization [facility] Address [address] [place] [address] Care Team Providers Care Senior Financial Accountant Name Role Phone Garth Lion MD Primary Care Provider +1- [phone] Encounter Details Date Type Department Care Team (Late Contact Info) Description 09/18/2024 Telephone [facility] Medical Group Family & Internal Medicine [facility] [address] [place] [address] [place] [address] [place] [address] Social History Tobacco Use Types Packs/Day Years Used Date Smoking Tobacco: Never Smokeless Tobacco: Never Alcohol Use Standard Drinks/Week Comments Not Currently 0 (1 standard drink = 0.6 oz pur e alcohol) PHQ-2 Answer Date Recorded Patient Health Questionnaire-2 Score 0 12/11/2022 Comments No Sex and Gender Information Value Date Recorded Sex Assigned at Female 08/11/2024 10:23 AM SALES HUNTER Legal Sex Female 5:31 PM CDT Gender Identity Female 09/02/2021 3:19 PM SALES HUNTER Sexual Orientation Not on file documented as of this encounter Plan of Treatment Upcoming Encounters Date Type Department Care Team (Late st Contact Info) Description 10/10/2024 8:00 AM CDT Appointment [facility] [address] [place] [address] Marita Bradley FNP [address] [address] 04/05/2025 11:45 AM CDT [facility] [address] [place] [address] Addy Ahumada MD Three [facility]. [address] [place] [address] documented as of this encounter Visit Diagnoses Not on filedocumented in this encounter Additional Health Concerns Assessment Noted Time PHQ-9 Depression Total Score: 15 022 2:30 PM CDT documented as of this encounter Care Teams Senior Financial Accountant Relationship Specialty [place] [address] [place] [address] PCP - General FAMILY PRACTICE 06/10/22 documented as of this encounter
--- OUTSIDE RECORDS SUMMARY | 2024-09-28 00:28 | XMS_ITS | Encounter Summary ---
Author Organization [facility] Address [address] [place] [address] Care Team Providers Care Cycle Director Name Role Phone Garth Lion MD Primary Care Provider [phone]- [phone] Encounter Details Date Type Department Care Team (Late st Contact Info) Description 09/07/2022 WrapMail Message Enc [facility] [address] Mychart, [facility] [place] Social History Tobacco Use Types Packs/Day Years [...] Sex Assigned at Female 08/11/2024 10:23 AM TYPING SECRETARY Legal Sex Female 5:31 PM CDT Gender Identity Female 09/02/2021 3:19 PM TYPING SECRETARY Sexual Orientation Not on file COVID-19 Exposure Response Date Recorded In the last 10 days, have yo u been in contact with someone who was confirmed or suspected to have Coronavirus/COVID-19? No / Unsure 09/03/2022 12:51 PM TYPING SECRETARY documented as of this encounter Plan of Treatment Upcoming Encounters Date Type Department Care Team (Late st Contact Info) Description 10/10/2024 8:00 AM CDT Appointment [facility] [address] [place] [address] Marita Bradley FNP 3 [facility] [address] [place] [address] 04/05/2025 11:45 AM CDT Office Visit [facility] [address] [place] [address] Addy Ahumada MD Three [facility]. [address] [place] [address] documented as of this encounter Visit Diagnoses Not on filedocumented in this encounter Additional Health Concerns Assessment Noted Time PHQ-9 Depression Total Score: 15 022 2:30 PM CDT documented as of this encounter Care Teams Cycle Director Relationship Specialty [place] [address] [place] [address] PCP - General FAMILY PRACTICE 06/10/22 documented as of this encounter
--- OUTSIDE RECORDS SUMMARY | 2024-09-28 00:28 | XMS_ITS | Encounter Summary ---
Author Organization [facility] Address [address] [place] [address] Care Team Providers Care Harvest Manager Name Role Phone Garth Lion MD Primary Care Provider [phone] [phone] Encounter Details Date Type Department Care Team (Late Contact Info) Description 10/19/2023 SDI-Solution Message Enc [facility] Family & Internal Medicine [facility] [address] [place] [address] [facility] Provider Due for lab appt Social [...] Sex Assigned at Female 08/11/2024 10:23 AM CORRECTIONS COUNSELOR Legal Sex Female 5:31 PM CDT Gender Identity Female 09/02/2021 3:19 PM CORRECTIONS COUNSELOR Sexual Orientation Not on file documented as of this encounter Plan of Treatment Upcoming Encounters Date Type Department Care Team (Late Contact Info) Description 10/10/2024 8:00 AM CDT Appointment [facility] [address] [place] [address] Marita Bradley, SAFIA [address] [address] 04/05/2025 11:45 AM CDT Office Visit [facility] [address] [place] [address] Addy Ahumada MD [address] [address] documented as of this encounter Visit Diagnoses Not on filedocumented in this encounter Additional Health Concerns Assessment Noted Time PHQ-9 Depression Total Score: 15 022 2:30 PM CDT documented as of this encounter Care Teams Harvest Manager Relationship Specialty [place] [address] [place] [address] PCP - General FAMILY PRACTICE 06/10/22 documented as of this encounter
--- OUTSIDE RECORDS SUMMARY | 2024-09-28 00:29 | XMS_ITS | Clinical Summary ---
Author Organization [facility] [address] Address [address] [place] [address] Care Team Providers Care Paranormal Investigator Name Role Phone Kevin Elena MD, Darren [...] on file Legal Sex Female 3:31 AM SWISS MACHINIST Gender Identity Not on file Sexual Orientation [...] history exists Medical Devices Implanted Type Area Director Merit System Device Identifier Shelf Expiration Date Model / Serial / Lot Sesay Vascular 32759-14 Starclose Se 6fr Clip Vascular Device Closure Nitinol Sterile - [id number] Implanted:Qty: 1 on 03/21/2019 at [facility] Sesay Vascular 1467 9-01 / / [employer] [id number] Protege Gps Exprt 7mm 6fr 40mm 135cm Rapid Exchange Self Expand - [id number] Implanted:Qty: 1 on 03/21/2019 at [facility] [employer] 01/21/2020 SECX-7 -40-13 5 / / [id number] Insurance MEDICARE Member Subscriber Plan / Payer ( fective 2018-Present) Name:Marlys Clark Member ID:[id number] Relation to Subscriber:Self Name:Marlys Clark Subscriber ID:[id number] Payer ID:[id number] Group ID:Not on file Type:MEDICARE TRADITIONAL Address: [place] [id number] MEDICARE Advance Directives For more information, please contact: [phone] * Full Code (Latest Code Status on File) Date Activated Date Inactivated Comments 03/21/2019 2:05 PM 03/22/2019 2:36 PM * Full Code Date Activated Date Inactivated Comments 03/15/2019 4:17 PM 03/16/2019 2:43 PM * Full Code Date Activated Date Inactivated Comments 03/15/2019 4:17 PM 03/15/2019 4:17 PM * Full Code Date Activated Date Inactivated Comments 03/15/2019 2:48 PM 03/15/2019 4:17 PM Care Teams Paranormal Investigator Relationship Specialty Start Date End Date Darren Brown Jr., MD [address] [place] [address] PCP - General 10/30/14
--- OUTSIDE RECORDS SUMMARY | 2024-09-28 00:29 | XMS_ITS | Encounter Summary ---
Author Organization [facility] Address [address] [place] [address] Care Team Providers Care Leather Piece Inspector Name Role Phone Vidhi Ellis NP Primary Care Provider [phone]- [phone] Garth Lion MD Primary Care Provider [phone] Encounter Details Date Type Department Care Team (Late st Contact Info) Description 04/29/2022 Prep for Procedure [facility] [address] [place] [address] Bi Rutledge MD [address] [place] [address] Social History Tobacco Use Types Packs/Day [...] Sex Assigned at Female 08/11/2024 10:23 AM RAILWAY TRACTION LINE WORKER Legal Sex Female 5:31 PM CDT Gender Identity Female 09/02/2021 3:19 PM RAILWAY TRACTION LINE WORKER Sexual Orientation Not on file COVID-19 Exposure Response Date Recorded In the last 10 days, have yo u been in contact with someone who was confirmed or suspected to have Coronavirus/COVID-19? No / Unsure 05/01/2022 10:56 AM CDT documented as of this encounter Plan of Treatment Upcoming Encounters Date Type Department Care Team (Late st Contact Info) Description 10/10/2024 8:00 AM CDT Appointment [facility] [address] [place] [address] Marita Bradley FNP 3 [facility] [address] [place], [place] [address] 04/05/2025 11:45 AM CDT Office Visit [facility] [address] [place] [address] Addy [facility]umada MD [facility] [address] [place], [place] [address] documented as of this encounter Results * ECG 12-Lead (04/29/2022 2:30 PM CDT) 04/29/2022 2:30 PM CDT Narrative [facility] RAD - 04/29/2022 6:37 PM CDT [facility]: 2022-[facility]29 Pat Name: YOLIS CLARK Department: 85 Room: Gender: Female Powdered Metal Supervisor: : 1955 Requested By: BI RUTLEDGE Order Number: [id number] Reading MD: Anthony Daniel Measurements Intervals [place] Rate: 60 P: [place]: 0 QRS: 7 QRSD: 96 T: 60 QT: 455 QTc: 457 Interpretive Statements ATRIAL FIBRILLATION ABNORMAL RHYTHM ECG Compared to ECG 08/31/2019 09:23:26 No significant changes Procedure Note Anthony Daniel MD - 04/29/2022 [facility] Date: 2022-04-29 Pat Name: YOLIS CLARK Department: 85 Room: Gender: Female Powdered Metal Supervisor: : 1955 Requested By: BI RUTLEDGE Order Number: [id number] Zaheer MD: Anthony Daniel Measurements Intervals [place] Rate: 60 P: [place]: 0 QRS: 7 QRSD: 96 T: 60 QT: 455 QTc: 457 Interpretive Statements ATRIAL FIBRILLATION ABNORMAL RHYTHM ECG Compared to ECG 08/31/2019 09:23:26 No significant changes us Bi Rutledge MD ECG ORDERABLES Final Result [facility] documented in this encounter Visit Diagnoses Diagnosis Pre-op testing- Primary Preoperative examination, unspecified Pre-op testing Preoperative examination, unspecified documented in this encounter Additional Health Concerns Assessment Noted Time PHQ-9 Depression Total Score: 15 022 2:30 PM CDT documented as of this encounter Care Teams Leather Piece Inspector Relationship Specialty [place] [address] [address] PCP - General Nurse Practitioner Family 10/03/2106/09/22 [place] [address] [place] [address] PCP - General FAMILY PRACTICE 06/10/22 documented as of this encounter
--- OUTSIDE RECORDS SUMMARY | 2024-09-28 00:29 | XMS_ITS | Encounter Summary ---
Author Organization [facility] Address [address] [place], [place] [address] Care Team Providers Care Assistant Golf Course Superintendent Name Role Phone Garth Lion MD Primary Care Provider [phone]- [phone] Encounter Details Date Type Department Care Team ([facility] Contact Info) Description 06/22/2022 Ticies Message Enc [facility] Medical Group Family & Internal Medicine [facility] [address] [place] [address] [place] [address] [place] [address] Headaches Social History Tobacco Use [...] Sex Assigned at Female 08/11/2024 10:23 AM ORNAMENTAL IRONWORKER HELPER Legal Sex Female 5:31 PM CDT Gender Identity Female 09/02/2021 3:19 PM ORNAMENTAL IRONWORKER HELPER Sexual Orientation Not on file COVID-19 Exposure Response Date Recorded In the last 10 days, have yo u been in contact with someone who was confirmed or suspected to have Coronavirus/COVID-19? No / Unsure 06/12/2022 11:29 AM ORNAMENTAL IRONWORKER HELPER documented as of this encounter Plan of Treatment Upcoming Encounters Date Type Department Care Team (Late Contact Info) Description 10/10/2024 8:00 AM CDT Appointment [facility] [address] [place] [address] Marita Bradley FNP 3 [facility] [address] [place] [address] 04/05/2025 11:45 AM CDT Office Visit [facility] [address] [place] [address] Adyd Ahumada MD Three [facility] [address] [place], [place] [address] documented as of this encounter Visit Diagnoses Not on filedocumented in this encounter Additional Health Concerns Assessment Noted Time PHQ-9 Depression Total Score: 15 022 2:30 PM CDT documented as of this encounter Care Teams Assistant Golf Course Superintendent Relationship Specialty [place] [address] [place] [address] PCP - General FAMILY PRACTICE 06/10/22 documented as of this encounter
--- OUTSIDE RECORDS SUMMARY | 2024-09-28 00:29 | XMS_ITS | Referral Summary ---
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 Sesay Vascular 1467 9-01 / / [employer] [id number] Protege Gps Exprt 7mm 6fr 40mm 135cm Rapid Exchange Self Expand - [id number] Implanted:Qty: 1 on 03/21/2019 at [facility] [employer] 01/21/2020 SECX-7 -40-13 5 / / [id number] Insurance MEDICARE MEDICARE Advance Directives For more information, please contact: [phone] * Full Code (Latest Code Status on File) Date Activated Date Inactivated Comments 03/21/2019 2:05 PM 03/22/2019 2:36 PM * Full Code Date Activated Date Inactivated Comments 03/15/2019 4:17 PM 03/16/2019 2:43 PM * Full Code Date Activated Date Inactivated Comments 03/15/2019 4:17 PM 03/15/2019 4:17 PM * Full Code Date Activated Date Inactivated Comments 03/15/2019 2:48 PM 03/15/2019 4:17 PM Care Teams Parking Attendant Relationship Specialty Start Date End Date Darren Brown Jr., MD [address] [place] [address] PCP - General 10/30/14
--- OUTSIDE RECORDS SUMMARY | 2024-09-28 00:29 | XMS_ITS | Clinical Summary ---
Author Organization [facility] Address [facility] [place] [address] Care Team Providers Care Stock Receiver Name Role Phone Paul Lion MD Primary Care Provider [phone] Allergies No known active allergies Medications aspirin EC (ECOTRIN) 81 MG tablet Take 1 tablet (81 mg total) by mouth daily. Active phenylephrine-cocoa butter (PREPARATION H) 0.25-88.44 % suppositoryIndications :Hemorrhoids, unspecified hemorrhoid type Place 1 suppository rectally 4 (four) times daily as needed for Hemorrhoids. 24 suppository 2 Active Additional Information Patient not taking.Reported on 09/21/2024 celecoxib 100 MG capsule Take 1 capsule (100 mg total) by mouth as needed. 022 Active RECTIV 0.4 % OintmentIndications:An al pain APPLY RECTALLY TWICE DAILY FOR 14 DAYS 30 g 023 Active valACYclovir (VALTREX) 1 g tabletIndications:HSV (herpes simplex virus) anogenital infection Take 1 tablet (1,000 mg total) by mouth 3 (three) times daily. For acute outbreak. 21 tablet 3 024 Active amLODIPine (NORVASC) 5 MG tabletIndications:Esse ntial hypertension TAKE 1 TABLET (5 MG TOTAL) BY MOUTH DAILY. 90 tablet 1 024 Active ticagrelor (BRILINTA) 60 MG tabletIndications:[place] tid artery stenosis, symptomatic, bilateral TAKE 1 TABLET BY MOUTH NIGHTLY. 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 Max daily dose 50mg. 18 tablet 2 024 Active sertraline (ZOLOFT) 100 MG tabletIndications:Irri tability TAKE 1 TABLET BY MOUTH IN THE MORNING 90 tablet 1 024 Active nebivolol (BYSTOLIC) 5 MG tabletIndications:Esse ntial hypertension TAKE 1 TABLET (5 MG TOTAL) BY MOUTH DAILY. 90 tablet 1 024 Active losartan (COZAAR) 25 MG tabletIndications:Esse ntial hypertension TAKE 1 TABLET (25 MG TOTAL) BY MOUTH DAILY. 90 tablet 1 025 Active methocarbamol (ROBAXIN) 750 MG TabIndications:Chronic bilateral low back pain without sciatica TAKE 1 TABLET BY MOUTH 2 TIMES DAILY NEEDED (BACK PAIN). 60 tablet 1 025 Active busPIRone (BUSPAR) 7.5 MG tabletIndications:Anxi ety TAKE 1 TABLET BY MOUTH 3 TIMES A DAY BY MOUTH NEEDED FOR ANXIETY 270 tablet 1 025 Active Additional Information Patient not taking.Reported on 09/21/2024 HYDROcodone-acetaminop hen (NORCO) 5-325 MG tabletIndications:Acut e Pain < 7 Day Supply Take 1 tablet by mouth every 6 (six) hours as needed for Pain. Indications: Acute Pain < 7 Day Supply 28 tablet 025 Active rosuvastatin (CRESTOR) 10 MG tabletIndications:[place] tid artery stenosis, symptomatic, bilateral,Pure hypercholesterolemia TAKE 1 TABLET BY MOUTH EVERY DAY 90 tablet 1 025 Active chlorhexidine (PERIDEX) 0.12 % solution RINSE WITH 1/2 OZ TWICE DAILY FOR 1 WEEK. SWISH FOR 30 SECONDS THEN SPIT, DO NOT SWALLOW. 2024 Disconti nued(The rapy complete d) traMADol (ULTRAM) 50 MG tablet Take 1 tablet (50 mg total) by mouth every 6 (six) hours as needed. 2024 Disconti nued(The rapy complete d) Active Problems Problem Noted Date Diagnosed Date Hemorrhoids 04/24/2022 Overview (04/24/2022): Added automatically from request for surgery [id number] Pure hypercholesterolemia 04/02/2021 Medication management 11/22/2020 Essential [...] Care Team Description 09/21/2024 11:00 AM CDT - 09/21/2024 11:59 PM CDT Hospital Encounter [facility] [address] [place] [address] Marita Bradley FNP Discharge Disposition: Home or Self Care (Routine Discharge) 09/21/2024 10:30 AM CDT [facility] [address] [place] [id number] Marita Bradley FNP Hypertension; Lipids; Palpitations 09/21/2024 Orders Only [facility] [address] [place] [address] Marita Bradley FNP 09/21/2024 Travel 09/18/2024 Telephone [facility] [place] [address] [place] [phone] Paul Lion MD 09/14/2024 Scan [facility] INFO SRVCS Scanned, [facility] 09/07/2024 Telephone [facility] [address] [address] Paul Lion MD Information 08/15/2024 Scan [facility] INFO SRVCS Scanned, [facility] Lab (SCAN) 08/11/2024 10:20 AM INDUSTRIAL ROOFER HELPER Office Visit [facility] [address] [address] Paul Lion MD Follow Up; Hypertension 08/11/2024 Travel 08/09/2024 [place]phone [place] [address] Addy Ahumada MD Surgical Clearance from Last 3 Months Immunizations Name Administration [...] (Prevnar 13) 05/12/2014 Shingrix 04/17/2021,06/18/2020,04/09/2020 Zoster (Zostavax) [address]56 Unt/0.65Ml 04/02/2009 Family History Medical History Relation [...] Sex Assigned at Female 08/11/2024 10:23 AM INDUSTRIAL ROOFER HELPER Legal Sex Female 5:31 PM CDT Gender Identity Female 09/02/2021 3:19 PM INDUSTRIAL ROOFER HELPER Sexual Orientation Not on file Last Filed Vital Signs Vital Sign Reading Time Taken Comments Blood Pressure 110/60 09/21/2024 10:28 AM CDT Pulse 64 09/21/2024 10:28 AM CDT Temperature 36.1 C (97 F) 08/11/2024 10:21 AM INDUSTRIAL ROOFER HELPER Respiratory Rate 16 08/11/2024 10:21 AM INDUSTRIAL ROOFER HELPER Oxygen Saturation 95% 08/11/2024 10:21 AM INDUSTRIAL ROOFER HELPER Inhaled Oxygen Concentration - - Weight 63.5 kg (140 lb) 09/21/2024 10:28 AM CDT Height 162.6 cm (5' 4 ) 09/21/2024 10:28 AM CDT Body Mass Index 24.03 09/21/2024 10:28 AM CDT Plan of Treatment Upcoming Encounters Date Type Department Care Team (Late st Contact Info) Description 10/10/2024 8:00 AM CDT Appointment [facility] [address] [place] [address] Marita Bradley FNP [facility] [address] [place], [place] [id number] 04/05/2025 11:45 AM CDT [facility] [address] [place] [phone] Addy Ahumada MD [facility] [address] [place] [address] Health Maintenance Due Date Last Done Comments Hepatitis C 1971 DTaP, Tdap and Td Vaccines (1 - Tdap) 1972 Annual Medicare Wellness Visit 2018 COVID-19 Vaccine (4 - season) 2024 06/03/2021, 10/04/2020, 09/13/2020 PHQ-2 (Physician [place]) 07/05/2024 12/11/2022 Mammogram Screening 09/30/2024 09/30/2022, 01/13/2021, [...] this topic Medical Devices Implanted Type Area Pattern Worker Device Identifier Shelf Expiration Date Model / Serial / Lot Intramedullary Arthrodesis Implant Implanted:Qty: 1 on 09/05/2019 by Denise Monroy DPM at [facility] Left: Toe 09/02/2023 REF NO STO-[id number] / / [id number] Procedures Procedure Name Priority Date/Time Associated Diagnosis [...] BONE DENSITY/DEXA Routine 07/24/2021 11: 00 AM INDUSTRIAL ROOFER HELPER Postmenopausal estrogen deficiency Screening for osteoporosis COLONOSCOPY GENERIC (SCAN ORDER) 11/23/2016 from Last 3 Months or Most Recently Relevant to Health Maintenance Results * (ABNORMAL) VITAMIN B12 / FOLATE (09/21/2024 11:07 AM CDT) VITAMIN B12 S/P/B 908 193 - 986 PG/ML 09/21/2024 11:56 AM CDT [facility] FOLATE 6.9(L) 8.6 - 58.9 NG/ML 09/21/2024 11:56 AM CDT [facility] 09/21/2024 11:0 7 AM CDT us [facility] Final Result [facility] [address] [place] [address], [place] [phone] * IRON SAT PANEL (IRON,IBC,%SAT) (09/21/2024 11:07 AM CDT) IRON 71 50 - 170 MCG/DL 09/21/2024 11:32 AM CDT [facility] IRON BINDING CAPACITY 363 250 - 450 MCG/DL 09/21/2024 11:32 AM CDT [facility] IRON SATURATION 20 20 - 55 % 11:32 AM CDT [facility] 09/21/2024 11:0 7 AM CDT Marita Bradley CENTRAL SUPPLY AIDE [facility]ORAT[facility] Final Result [facility] [address] [place] [address], [place] [phone] * (ABNORMAL) CBC, AUTO, NO DIFF (09/21/2024 11:07 AM CDT) Pathologist [facility] WBC 5.45 4.4 - 11.0 x10'3/uL 09/21/2024 11:12 AM CDT [facility] RBC 3.80(L) 4.50 - 5.10 x10'6/uL 09/21/2024 11:12 AM CDT [facility] HGB 11.0(L) 12.3 - 15.3 G/DL 09/21/2024 11:12 AM CDT [facility] HCT 34.1(L) 35.9 - 44.6 % 09/21/2024 11:12 AM CDT [facility] MCV 89.7 80.0 - 96.0 FL 09/21/2024 11:12 AM CDT [facility] MCH 28.9 25.3 - 30.9 PG 09/21/2024 11:12 AM CDT [facility] MCHC 32.3 31.0 - 34.1 G/DL 09/21/2024 11:12 AM CDT [facility] RDW 13.5 12.4 - 15.1 % 09/21/2024 11:12 AM CDT [facility] PLT 176 151 - 353 x10'3/uL 09/21/2024 11:12 AM CDT [facility] MPV 10.1 9.6 - 12.0 FL 09/21/2024 11:12 AM CDT [facility] 09/21/2024 11:0 7 AM CDT Marita Bradley CENTRAL SUPPLY AIDE [facility] Final Result Performing Organization Address City/[facility]/ZIP Co de Phone Number [facility] [address] [place] [address], * FERRITIN (09/21/2024 11:07 AM CDT) Pathologist [facility] FERRITIN 32.0 8.0 - 388.0 NG/ML 09/21/2024 11:42 AM CDT [facility] 09/21/2024 11:0 7 AM CDT Marita Bradley CENTRAL SUPPLY AIDE [facility] Final Result Performing Organization Address City/[facility]/ZIP Co de Phone Number [facility] [address] [place] [address], [place] [phone] * OUTSIDE LAB (SCAN ORDER) (08/15/2024) Only [...] t * BONE DENSITY/DEXA (07/24/2021 11:00 AM INDUSTRIAL ROOFER HELPER) Anatomical Region Laterality Modality Bone Bone Density 07/24/2021 11:0 5 AM INDUSTRIAL ROOFER HELPER Narrative 07/24/2021 11:07 AM INDUSTRIAL ROOFER HELPER IMAGING STUDIES: BONE DENSITY/DEXA DATE: 07/24/2021 11:00 [...] to Health Maintenance Insurance [employer] Care Teams Stock Receiver Relationship Specialty [place] [address] [place] [address] PCP - General FAMILY PRACTICE 06/10/22
--- OUTSIDE RECORDS SUMMARY | 2024-09-28 00:29 | XMS_ITS | Encounter Summary ---
Author Organization [facility] Healthcare Address [address] [place] [address] Care Team Providers Care Crop Picker Name Role Phone Kevin Elena MD, Darren Gracia Primary Care Provider Encounter Details Date Type Department Care Team (Late st Contact Info) Description 03/15/[address] [phone] Tanner An, RN Social History Tobacco Use Types Packs/Day Years Used Date Smoking Tobacco: Never Smokeless Tobacco: Never Alcohol Use Standard Drinks/Week Comments No 0 (1 standard drink = 0.6 oz pur e alcohol) Comments Unknown Sex and Gender Information Value Date Recorded Sex Assigned at Not on file 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
[2024-09-28] MEDS: LACTATED RINGERS 1,000 ML 30 ML IV CONT ×2 (06:23→12:00)
[2024-09-28 06:40] LABS: Urine Cotinine NEGATIVE
--- NOTE | 2024-09-28 06:49 | WPDHPUPDATE1 ---
History and Physical Update Update Date/Time: 09/28/24 06:49 History and Physical has been reviewed, including an updated exam of the patient. There are NO changes in the patient's condition. Risks, benefits, and alternatives have been discussed and questions answered. Patient agrees to proceed with procedure.
--- NOTE | 2024-09-28 07:11 | P.PNAN_ITS ---
Anes - Initial Pre Proc Eval Procedure: Operation Date: 09/28/24 07:30 Proposed Procedures p Bilateral Brachioplasty - Charlie Carbone MD s Upper and Lower Blepharoplasty with Fat Grafting - Charlie Carbone MD Date/Time: 09/28/24 07:11 Surgeon: Charlie Carbone MD Pre Op Diagnosis: Skin Laxity, Dermatochalasis Patient Data Age: 69 Gender: F Height: 1.64 m Weight: 63.4 kg Allergies Allergy/AdvReac Type Severity Reaction Status Date / Time valsartan AdvReac Intermediate shortness Verified 09/18/24 14:57 of breath perindopril AdvReac Mild Cough Verified 09/18/24 14:57 Home Medications ?Medication ?Instructions ?Recorded ?Confirmed ?Type frovatriptan 2.5 mg tablet 2.5 mg PO ONCE 12/04/19 09/18/24 History aspirin 325 mg tablet 325 mg PO DAILY 01/04/20 09/18/24 History vrgmbn-srtihefi-xipvlkt 1 cap PO QID 30 days #150 caps 01/04/20 09/18/24 Rx 36,000-114,000-180,000 unit capsule,delay rel (Creon) fluticasone propionate 93 2 spray intranasal Q12H 30 days 01/30/20 09/18/24 Rx mcg/actuation breath activated #16 mL aerosol (Xhance) topiramate 100 mg tablet 100 mg PO DAILY 90 days #90 tabs 05/27/20 09/18/24 Rx amitriptyline 25 mg tablet 25 mg PO QPM #90 tabs 09/11/20 09/18/24 Rx amlodipine 5 mg tablet 5 mg PO DAILY #30 tabs 09/17/20 09/18/24 Rx rosuvastatin 10 mg tablet 10 mg PO DAILY 90 days #90 tabs 10/01/20 09/18/24 Rx valacyclovir 1 gram tablet 1,000 mg PO TID #30 tabs 10/28/20 09/18/24 Rx nebivolol 5 mg tablet (Bystolic) 5 mg PO DAILY #7 tabs 10/29/20 09/18/24 Rx ticagrelor 60 mg tablet 60 mg PO BID #7 tabs 10/29/20 09/18/24 Rx tramadol 50 mg tablet 50 mg PO DAILY PRN pain 30 days 10/29/20 09/18/24 Rx #30 tabs aspirin 81 mg capsule 81 mg PO DAILY 09/18/24 09/18/24 History losartan 25 mg tablet 25 mg PO DAILY 09/18/24 09/18/24 History sertraline 100 mg tablet 100 mg PO DAILY 09/18/24 09/18/24 History Laboratory Tests 09/28/24 06:09 Cotinine Negative Patient hx anesthesia problems: none Family hx anesthesia problems: none Results Review: All pre-operative results and documents have been reviewed as part of the pre- operative evaluation. [facility] Past Medical History Medical History Chronic low back pain Eustachian tube dysfunction History of CVA (cerebrovascular accident) Family History Family History Father Family history of lung cancer Family history of malignant neoplasm of brain Patient's father is Family history of malignant neoplasm Mother Cerebrovascular accident Family history of coronary artery disease Other Family history of cardiovascular disease Hypertension Social History Social History Smoking status: Never smoker Alcohol intake: never Anes - Eval Final PreProcedure Day of Procedure 09/28/24 07:11 Patient weight: normal Heart: regular rate and rhythm Lungs: clear to auscultation Airway: Mallampati scale class II Neurological: alert and oriented Last oral intake: >/= 8 hours ASA classification: III Emergent: no Anesthetic plan: proceed Anesthesia type and monitoring: general ETT and standard monitoring Results Review: All pre-operative results and documents have been reviewed as part of the pre- operative evaluation. Informed Consent: The patient's anesthetic plan and its attendant risks and benefits were discussed with the patient/family/POA. Questions were solicited and answers provided to the satisfaction of the patient/family/POA.
--- NOTE | 2024-09-28 07:11 | W.PM.PROC2 ---
Procedure Note - Detailed Date of Procedure 09/28/24 Pre-op Diagnosis Skin Laxity, Dermatochalasis Post-op Diagnosis Same Procedure Performed 1. Bilateral upper blepharoplasty 2. Bilateral lower blepharoplasty with fat grafting 3. Bilateral brachioplasty Surgeon Charlie Carbone MD Anesthesia General Findings Lipoaspirate: 600 cc Fat grafting: Right eye 6 cc Left eye 7 cc Description of Procedure Preoperatively risks, benefits, alternatives were discussed in extensive detail. I want them to be very realistic about the risks involved as well as expectations. Discussed what we can and cannot improved. Limitations of this procedure. Alternative procedure as well as adjuvant procedures. This was a lengthy open-ended conversation discussing realistic expectations of outcome. Answered all of their questions to their satisfaction. Consent obtained. Marked in the preoperative holding along the tarsal crease. A pinch test was completed to sara the upper border and pinch test was utilized to verify no lagophthalmos after simulation of skin removal. Also marked planned lower blepharoplasty and brachioplasty. Taken to the operating placed supine on the operating table. Anesthesia was provided by anesthesiology. Prepped and draped in a standard sterile fashion. Surgical time-out was taken. Eyes were irrigated with BSS Adipose harvest Stab incisions were made at the arms and I tumesced with a tumescent solution. Once adequate time for hemostasis suction lipectomy was completed with a 3mm multi-hole cannula on hand suction with 10cc syringes. It was placed vertical for gravity seperation. Upper blepharoplasty 1% lidocaine and 0.25% Marcaine with epinephrine was used anesthetize locally. A 15 blade was used to excise the skin flap. I thin incised the muscle and entered the nasal and middle compartments removing only what was clearly excess adiposity. I verified strict hemostasis throughout. This was closed with 5-0 fast absorbing plain gut suture. Lower blepharoplasty 1% lidocaine and 0.25% Marcaine with epinephrine was used anesthetize locally with low volume of local to protect from distortion of structures. Tetracaine eyedrops placed. Corneal protectors also placed. Needle-tip cautery was used to incise just inferior to the tarsus and a transconjunctival lower lid blepharoplasty technique. The conjunctiva was retracted with a 5-0 nylon. I elevated in a preseptal fashion down to the level of the rim. At this point I entered the nasal, middle, and lateral compartments and removed only what was clearly excess adiposity. I verified strict hemostasis throughout. I verified that the inferior oblique was protected during this procedure. With gentle pressure on the globe I verified the contour the lower lids. Both lids proceeded in the same manner. Retraction suture and corneal protectors were removed. Copious irrigated again with BSS solution. Only the central fat from the syringes were used. These were passed through [employer] microfat grafting connectors t0 2.4 then 1.2 microns. 18 gauge needle utilized to make stab incisions. Fat infiltrated on tulip fat grafting cannulas in multiple plans and passes based on preoperative planning and intraoperative observation. Brachioplasty We re-prepped and draped in a standard sterile fashion. Re-tumesced the arms in areas not already treated. Once adequate time for hemostasis suction lipectomy was continued with a 5mm basket and 4 mm [place] cannula based on S.A.F.E. technique. This was completed based on preoperative planning, intraoperative observation, and rolling pinch test which was in full agreement. I completely de-fatted the planned resection area and a strip avulsion technique was completed. Starting proximal to distal a 10 blade was used to excise the intervening skin and this was tacked as we proceed to ensure good closure. This was closed using a 2-0 Quill, 3-0 strata fix, running subcuticular 4-0 Monocryl, and Brijjit closure device. Dressings were placed. Tolerated the procedure well. Taken to the PACU without difficulty. All instrument sponge counts were correct at the end of the case. Estimated Blood Loss 30 Drains No Packing No Pathology None sent Complications No immediate complications Condition Stable Disposition PACU
[2024-09-28] MEDS: TRANEXAMIC ACID 1,000MG/ISO100 1,000 MG/100 ML BAG 200 MG IVPB (07:13)
[2024-09-28] MEDS: ceFAZolin 2 GM/D5W 50 ML 2 GM/50 ML BAG IVPB (07:30)
[2024-09-28] MEDS: LACTATED RINGERS IRRIG 1,000 ML, LIDOCAINE 1% LOCAL INJ 50 ML, EPINEPHrine HCL INJ 1 MG... INFILTRATE (08:44)
[2024-09-28] MEDS: NACL 0.9% IRRIG BAG 1,000 ML, LIDOCAINE 1% LOCAL INJ 75 ML, EPINEPHrine HCL INJ 3 MG INFILTRATE (08:45)
[2024-09-28] MEDS: BALANCED SALT SOLN OPHTH IRRIG 30 ML BTL 10 ML EACH EYE (08:48)
[2024-09-28] MEDS: TETRACAINE HCL 0.5% 2 DROP EACH EYE (08:49)
[2024-09-28] MEDS: oxyCODONE HCL (*CRX) 2.5 MG TAB IR PO (13:47)
== END 2024-09-28 14:04 | disposition home or self-care (01) ==
PROVIDERS: PCP Family Medicine; Visit Provider Surgery Plastic and Reconstructive Surgery
PROC: (CPT 15836; principal; 2024-09-28 07:30)
PROC: (CPT 15822; 2024-09-28 07:30)
DX: Z41.1 Encounter for cosmetic surgery (principal); L57.4 Cutis laxa senilis; H02.835 Dermatochalasis of left lower eyelid; H02.834 Dermatochalasis of left upper eyelid; H02.831 Dermatochalasis of right upper eyelid; H02.832 Dermatochalasis of right lower eyelid; I10 Essential (primary) hypertension; E78.00 Pure hypercholesterolemia, unspecified; G89.29 Other chronic pain; M54.50 Low back pain, unspecified; Z79.82 Long term (current) use of aspirin; Z79.891 Long term (current) use of opiate analgesic; Z79.02 Long term (current) use of antithrombotics/antiplatelets; Z98.890 Other specified postprocedural states; Z95.5 Presence of coronary angioplasty implant and graft; Z98.84 Bariatric surgery status; Z86.79 Personal history of other diseases of the circulatory system; Z80.1 Family history of malignant neoplasm of trachea, bronchus and lung; Z80.8 Family history of malignant neoplasm of other organs or systems; Z82.49 Family history of ischemic heart disease and other diseases of the circulatory system
CPT/HCPCS: 15822; 15820; 15773; 15836; 80307; A9270; J0171; J0690; J1100; J1171; J1596; J2003; J2004; J2371; J2405; J2704; J3010; J7030; J7120